=== PATIENT | male | born 1925 | race Caucasian/White ===

== ENCOUNTER 2017-02-05 16:23 | Inpatient (IN) | payer OTHER, MEDICARE ==
--- NOTE | 2017-02-05 16:51 | PDOC ---
[id number] is an 89 year old male with a past medical hx of end stage renal disease (dialysis //thu), HTN, hypercholesterolemia, and hypothyroidism who presents to the ED complaining of nasal congestion and a cough for a few days. The patient reports a yellow/white sputum. He reports he received a full course of dialysis today and then he went to see Dr. Longoria for his symptoms. Dr. Longoria states the patient also had a fever and sent him to the ED for further evaluation. The patient notes generalized weakness. The patient denies any headache, dizziness, chest pain, SOB, abdominal pain, nausea, vomiting, diarrhea, rash. PCP is Dr. Longoria. Wool Supplier is Dr. 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/BPH) HTN: Yes Hypercholesterolemia: Yes Liver Disease: No Seizures: No Thyroid Disease: Yes - Surgical History Abdominal Surgery: Yes Appendectomy: No Cardiac Surgery: No Cholecystectomy: Yes Lung Surgery: No Neurologic Surgery: No Orthopedic Surgery: No - Immunization History Immunization Up to Date: Yes - Psycho/Social/Smoking Cessation Hx Anxiety: No Suicidal Ideation: No Smoking Status: No Smoking History: Former smoker Have you smoked in the past 12 months: No Number of Cigarettes Smoked Daily: 0 If you are a former smoker, when did you quit?: 1965 Cigars Per Day: 0 Information on smoking cessation initiated: No Hx Alcohol Use: No Drug/Substance Use Hx: No Substance Use Type: None Hx Substance Use Treatment: No <Willy Coker - Last Filed: 02/10/17 02:45> - Past Medical History Allergies/Adverse Reactions: Allergies Allergy/AdvReac Type Severity Reaction Status Date / Time No Known Drug Allergies Allergy Verified 02/05/17 16:39 Home Medications: Ambulatory Orders Levothyroxine [Synthroid -] 75 mcg PO DAILY@0700 tablet 09/18/15 Sevelamer Carbonate [Renvela -] 800 mg PO BIDWM tab 09/18/15 Labetalol HCl [Normodyne -] 50 mg PO DAILY 09/08/16 Review of Systems - Review of Systems Able to Perform ROS?: Yes Comments:: 02/05/17 19:15 CONSTITUTIONAL: +Fever, generalized weakness. No reported: Chills, Diaphoresis, Malaise, Loss of Appetite HEENT: +Nasal congestion. No reported: Rhinorrhea, Throat Pain, Throat Swelling, Difficulty Swallowing, Mouth Swelling, Ear Pain, Eye Pain, Visual Changes CARDIOVASCULAR: No reported: Chest Pain, Syncope, Palpitations, Irregular Heart Rate, Lightheadedness, Peripheral Edema RESPIRATORY: +Cough. No reported: Shortness of Breath, SOB with Exertion, Orthopnea, Wheezing , Stridor, Hemoptysis GASTROINTESTINAL: No reported: Abdominal pain, Abdominal Distension, Nausea, Vomiting, Diarrhea, Constipation, Melena, Hematochezia GENITOURINARY: No reported: Dysuria, Frequency, Urgency, Hesitancy, Flank Pain, Genital Pain MUSCULOSKELETAL: No reported: Myalgia, Arthralgia, Joint Swelling, Back pain, Neck Pain SKIN: No reported: Rash, Itching, Pallor HEMEATOLOGIC/IMMUNOLOGIC: No reported: Easy Bleeding, Easy Bruising, Lymphadenopathy, Frequent infections ENDOCRINE: No reported: Unexplained Weight Gain, Unexplained Weight Loss, Heat Intolerance , Cold Intolerance NEUROLOGIC: No reported: Headache, Focal Weakness, Paresthesias, Vertigo, Lightheadedness, Unsteady Gait, Seizure, Mental Status Changes, Incontinence PSYCHIATRIC: No reported: Anxiety, Depression <Ai Mcneil - Last Filed: 02/05/17 19:16> *Physical Exam - Vital Signs Last Vital Signs Temp Pulse Resp BP Pulse Ox 102.7 F H 88 20 160/64 96 02/05/17 16:37 02/05/17 16:37 02/05/17 16:37 02/05/17 16:37 02/05/17 16:37 - Physical Exam Comments: 02/05/17 19:16 GENERAL: The patient is awake, alert, and fully oriented, Nontoxic - in no acute distress, thin to touch HEAD: Normocephalic, atraumatic. EYES: extraocular movements intact, sclera anicteric, conjunctiva clear. ENT: Normal voice, Moist mucous membranes. NECK: Normal range of motion, supple LUNGS: Breath sounds equal, clear to auscultation bilaterally. No wheezes, no rhonchi, no rales. HEART: 4/6 systolic murmer ABDOMEN: Soft, nontender, normoactive bowel sounds. No guarding, no rebound. . No CVA tenderness EXTREMITIES: +fistula in LUE with thrill Normal range of motion, no edema. No clubbing or cyanosis. No cords, erythema, or tenderness. NEUROLOGICAL: No facial assymetry, Normal speech, movin gall 4 extremities spotnaneously and symemtrically PSYCH: Normal mood, normal affect. SKIN: hot to touch, Dry, normal turgor, <Ai Mcneil - Last Filed: 02/05/17 19:16> - Vital Signs Last Vital Signs Temp Pulse Resp BP Pulse Ox 102.7 F H 88 20 160/64 96 02/05/17 16:37 02/05/17 16:37 02/05/17 16:37 02/05/17 16:37 02/05/17 16:37 <Willy Coker - Last Filed: 02/10/17 02:45> Heart Score/ECG Review - ECG Impressions Comment:: 02/05/17 17:31 Twelve-lead EKG was performed and reviewed by me. There is normal sinus rhythm with a normal rate. Rate of 93 First degree AV block PACs with apparent conduction No ST changes suggestive of acute ischemia <Willy Coker - Last Filed: 02/10/17 02:45> ED Treatment Course - LABORATORY CBC & Chemistry Diagram: 02/05/17 17:48 02/05/17 17:48 - ADDITIONAL ORDERS Additional order review: Laboratory Results 02/05/17 02/05/17 17:48 17:48 Sodium 137 Potassium 3.5 Chloride 97 L Carbon Dioxide 26 Anion Gap 14 BUN 29 H Creatinine 3.2 H D Creat Clearance w eGFR 18.38 Random Glucose 100 D Lactic Acid 1.227 Calcium 8.6 Total Bilirubin 0.9 D AST 18 D ALT 24 Alkaline Phosphatase 137 H Creatine Kinase 124 Troponin I 0.09 H Total Protein 6.8 D Albumin 3.5 D 02/05/17 17:48 Influenza Types A,B Antigen (OLEG) - Final Nasopharyngeal Swab - Final 02/05/17 17:48 RBC 3.80 L MCV 95.2 MCHC 32.6 RDW 16.2 H D MPV 8.9 Neutrophils % 79.9 D Lymphocytes % 8.8 D Monocytes % 10.8 H Eosinophils % 0.1 D Basophils % 0.4 - Medications Given in the ED: ED Medications Discontinued Medications Generic Name Dose Route Start Last Admin Trade Name Freq PRN Reason Stop Dose Admin Acetaminophen 975 mg 02/05/17 17:28 02/05/17 17:38 Tylenol - PO 02/05/17 17:29 975 mg ONCE ONE Administration <Ai Mcneil - Last Filed: 02/05/17 19:16> - LABORATORY CBC & Chemistry Diagram: 02/08/17 08:50 02/09/17 07:05 <Willy Coker - Last Filed: 02/10/17 02:45> Medical Decision Making - Medical Decision Making 02/05/17 17:29 89y M hx of HTN, HLD, moderate , ESRD on HD Tue/Namita/Sat, anemia, OA, and hypothyroidism presents with complaint of fever, nasal congestion, mild cough. Pt n oted to be febrile here to 102 and states he isnt feeling well. No associated pain. Exam unremarkable with cler lungs. suspect viral syndrome vs pna will ck labs, cultures, cxr, influenza will give tylenol will reassess A portion of this note was documented by scribe services under my direction. I have reviewed the details of the note, within reason, and agree with the documentation with the following case summary and management plan written by me 02/05/17 18:[address] longoria requests admission to await blood cultures agreed with management and requested cultures and if flu negative, start rocephin cxr negative for pna will admit for further management stable for med/surg Case discussed in detail with admitting physician including history, physical exam and ancillary studies. Admitting physician has assumed care for the patient, will follow all pending diagnostics and will complete the evaluation and treatment. <Willy Coker - Last Filed: 02/10/17 02:45> *DC/Admit/Observation/Transfer - Attestations Scribe Attestion: 02/05/17 19:15 Documentation prepared by Ai Mcneil, acting as medical and health services manager for Willy Coker MD, /DO. <Ai Mcneil - Last Filed: 02/05/17 19:16> - Discharge Dispostion Admit: Yes <Willy Coker - Last Filed: 02/10/17 02:45> Diagnosis at time of Disposition: Fever in adult - Referrals
[2017-02-05] MEDS ORDERED: ACETAMINOPHEN 325 MG TABLET (FP) PO ONE (17:28)
[2017-02-05] MEDS ORDERED: ACETAMINOPHEN 325 MG TABLET (FP) ONE (17:39)
[2017-02-05 18:00] LABS: BASOPHIL 0.4 % (0-2.0); EOSINOPHIL 0.1 % (0-4.5); MCHC 32.6 g/dl (32.0-35.9); MEAN CELL VOLUME 95.2 fl (80-96); MEAN PLT VOLUME 8.9 fl (7.5-11.1); NEUTROPHILS 79.9 % (42.8-82.8); PLATELET COUNT 129 K/MM3 (134-434); RDW 16.2 % (11.9-15.9); WHITE BLOOD COUNT 4.9 K/mm3 (4.0-10.0)
[2017-02-05 18:07] LABS: INR 1.28 (0.82-1.09); PROTHROMBIN TIME (PATIENT) 14.1 SEC (9.98-11.88)
[2017-02-05 18:28] LABS: ALBUMIN 3.5 g/dl (3.4-5.0); BILIRUBIN,TOTAL 0.9 mg/dL (0.2-1.0); CALCIUM 8.6 mg/dL (8.5-10.1); COCKROFT - GAULT 11.84; CREATININE 3.2 mg/dL (0.7-1.3); TOT PROT 6.8 g/dl (6.4-8.2)
[2017-02-05 18:31] LABS: TROPONIN I 0.09 ng/ml (0.00-0.05)
[2017-02-05] MEDS ORDERED: CEFTRIAXONE 1 GM in DEXTROSE 5%-WATER - 50 ML IVPB ONE (18:47)
[2017-02-05] MEDS ORDERED: CEFTRIAXONE 50 ML ONE (18:50)
[2017-02-05 21:01] VITALS: BMI 19.3
[2017-02-05] MEDS ORDERED: ACETAMINOPHEN 325 MG TABLET (FP) PO PRN (21:01)
[2017-02-05] MEDS: HEPARIN NA (PORCINE) 5,000 UNITS/ML 1ML VIAL SQ SCH (21:34)
[2017-02-06] MEDS: LEVOTHYROXINE NA 75 MCG TABLET (FP) PO SCH (06:04)
[2017-02-06 07:50] LABS: BASOPHIL 0.7 % (0-2.0); EOSINOPHIL 0.2 % (0-4.5); MCH 31.6 pg (25.7-33.7); MCHC 32.9 g/dl (32.0-35.9); MEAN CELL VOLUME 95.8 fl (80-96); MEAN PLT VOLUME 8.6 fl (7.5-11.1); PLATELET COUNT 104 K/MM3 (134-434); RDW 16.4 % (11.9-15.9); WHITE BLOOD COUNT 4.2 K/mm3 (4.0-10.0)
[2017-02-06 07:51] LABS: ALBUMIN 3.1 g/dl (3.4-5.0); BILIRUBIN,TOTAL 0.6 mg/dL (0.2-1.0); CALCIUM 7.9 mg/dL (8.5-10.1); COCKROFT - GAULT 8.1; CREATININE 4.4 mg/dL (0.7-1.3)
[2017-02-06] MEDS: SEVELAMER CARBONATE 800 MG TAB (FP) PO SCH ×2 (07:52→17:36)
[2017-02-06 07:54] LABS: TROPONIN I 0.22 ng/ml (0.00-0.05)
--- NOTE | 2017-02-06 09:06 | HP ---
Admitting History and Physical - Admission History of Present Illness: 89 year old male with a past medical hx of end stage renal disease (dialysis //thu), HTN, hypercholesterolemia, and hypothyroidism who presents to the ED complaining of nasal congestion and a cough for a few days. The patient reports a yellow/white sputum. He reports he received a full course of dialysis today and then he was seen in the office the patient also had a fever and I sent him to the ED for further evaluation. The patient notes generalized weakness. - Past Medical History Cardiovascular: Yes: Aortic Stenosis, HTN, Hyperlipdemia, Murmur, Other (aotic stenosis--moderate) Gastrointestinal: Yes: Peptic Ulcer Disease (40 years ago) Hepatobiliary: Yes: Cholecystitis (s/p drain placement) Renal/: Yes: Renal Failure, BPH, Hemodialysis Heme/Onc: Yes: Anemia Musculoskeletal: Yes: Osteoarthritis Endocrine: Yes: Hypothyroidism - Past Surgical History Past Surgical History: Yes: AV Fistula/Graft, Cholecystectomy - Smoking History Smoking history: Former smoker Have you smoked in the past 12 months: No Aproximately how many cigarettes per day: 0 If you are a former smoker, when did you quit?: 1965 - Alcohol/Substance Use Hx Alcohol Use: No Home Medications - Allergies Allergies/Adverse Reactions: Allergies Allergy/AdvReac Type Severity Reaction Status Date / Time No Known Drug Allergies Allergy Verified 02/05/17 16:39 - Home Medications Home Medications: Ambulatory Orders Levothyroxine [Synthroid -] 75 mcg PO DAILY@0700 tablet 09/18/15 Sevelamer Carbonate [Renvela -] 800 mg PO BIDWM tab 09/18/15 Labetalol HCl [Normodyne -] 50 mg PO DAILY 09/08/16 Review of Systems - Review of Systems Constitutional: reports: Fever, Weakness Cardiovascular: denies: Chest Pain Respiratory: reports: Cough Gastrointestinal: denies: Abdominal Pain Genitourinary: reports: No Symptoms Neurological: reports: Incoordination, Unsteady Gait, Weakness Physical Examination Vital Signs: Vital Signs Temperature 98.1 F 02/06/17 08:33 Pulse Rate 70 02/06/17 08:33 Respiratory Rate 20 02/06/17 08:33 Blood Pressure 125/64 02/06/17 08:33 O2 Sat by Pulse Oximetry (%) 95 02/05/17 20:54 Cardiovascular: Yes: Murmur, S1, S2 Respiratory: Yes: Rales (roland) Gastrointestinal: Yes: Normal Bowel Sounds, Soft Edema: No Neurological: Yes: Alert, Oriented, Unsteady Gait, Weakness Labs: CBC, BMP 02/06/17 06:20 02/06/17 06:20 Problem List - Problems (1) Pneumonia Assessment/Plan: IV ABX CT OF CHEST O2 ID AND PULM CONSULT Code(s): J18.9 - PNEUMONIA, UNSPECIFIED ORGANISM (2) Elevated troponin I level Assessment/Plan: MONITOR LABS--MAYBE DUE TO RENAL FAILURE CARDIO Code(s): R74.8 - ABNORMAL LEVELS OF OTHER SERUM ENZYMES (3) Aortic stenosis Assessment/Plan: PER CARDIO Code(s): I35.0 - NONRHEUMATIC AORTIC (VALVE) STENOSIS Qualifiers: Cardiac valve disease etiology: nonrheumatic Qualified Code(s): I35.0 - Nonrheumatic aortic (valve) stenosis (4) ESRD (end stage renal disease) Assessment/Plan: RENAL CONSULT Code(s): N18.6 - END STAGE RENAL DISEASE (5) Weakness Assessment/Plan: TREAT PNEUMONIA PT Code(s): R53.1 - WEAKNESS
[2017-02-06] MEDS: CEFTRIAXONE 50 ML IVPB SCH (10:04)
[2017-02-06] MEDS: LABETALOL HCL 100 MG TABLET (FP) PO SCH (10:05)
[2017-02-06] MEDS: HEPARIN NA (PORCINE) 5,000 UNITS/ML 1ML VIAL SQ SCH ×2 (10:05→22:03)
--- NOTE | 2017-02-06 10:13 | CONSULT ---
Consultation: REQUESTING PROVIDER: CONSULT REQUEST: We have been asked to medically evaluate this patient for ( specify). HISTORY OF PRESENT ILLNESS: This is an 89-year-old male with a history of HTN, HLD, moderate , ESRD on HD Thu/Thu/Thu, anemia, OA, and hypothyroidism who presents to the hospital complaining of cough for 1.5 weeks and congested nose for a day. He went to his PCP office and was referred to the ED. The pt was found to have T 102 F. The pt didn't have fever before coming to the hospital. He denies SOB, sore throat, chest pain, abdominal pain, N/V, diarrhea, constipation. He denies dysuria, sick contacts, recent travel. He was recntly hospitalized in [facility] 19 Sep 2016) for GI bleeding. REVIEW OF SYSTEMS: CONSTITUTIONAL: fever, Absent: chills, diaphoresis, generalized weakness, malaise, loss of appetite, weight change HEENT: Absent: rhinorrhea, nasal congestion, throat pain, throat swelling, difficulty swallowing, mouth swelling, ear pain, eye pain, visual changes CARDIOVASCULAR: Absent: chest pain, syncope, palpitations, irregular heart rate, lightheadedness , peripheral edema RESPIRATORY: cough, Absent: shortness of breath, dyspnea with exertion, orthopnea, wheezing, stridor , hemoptysis GASTROINTESTINAL: Absent: abdominal pain, abdominal distension, nausea, vomiting, diarrhea, constipation, melena, hematochezia GENITOURINARY: Absent: dysuria, frequency, urgency, hesitancy, hematuria, flank pain, genital pain MUSCULOSKELETAL: Absent: myalgia, arthralgia, joint swelling, back pain, neck pain SKIN: Absent: rash, itching, pallor ENDOCRINE: Absent: unexplained weight gain, unexplained weight loss NEUROLOGIC: Absent: headache, focal weakness or paresthesias, dizziness, unsteady gait, seizure, mental status changes, bladder or bowel incontinence PSYCHIATRIC: Absent: anxiety, depression PHYSICAL EXAMINATION Vital Signs - 24 hr 02/05/17 02/05/17 02/06/17 20:06 20:54 01:00 Temperature 97.9 F 98.8 F 98.4 F Pulse Rate 20 L Pulse Rate [ 70 Apical] Respiratory 18 Rate Blood Pressure 128/66 Blood Pressure 111/57 [Left Arm] O2 Sat by Pulse 96 95 Oximetry (%) 02/06/17 02/06/17 02/06/17 06:00 06:30 08:33 Temperature 100.6 F H 98.8 F 98.1 F Pulse Rate 80 70 Pulse Rate [ Apical] Respiratory 24 20 Rate Blood Pressure 147/81 125/64 Blood Pressure [Left Arm] O2 Sat by Pulse Oximetry (%) GENERAL: Awake, alert, and fully oriented, in no acute distress, cachectic. HEAD: Normal with no signs of trauma. EYES: Pupils equal, round and reactive to light, extraocular movements intact, sclera anicteric, conjunctiva clear. EARS, NOSE, THROAT: Ears normal, nares patent, oropharynx clear without exudates. Moist mucous membranes. NECK: Normal range of motion, supple without lymphadenopathy, JVD, or masses. LUNGS: Breath sounds equal, crackles on left side at base. No wheezes. No accessory muscle use. HEART: Regular rate and rhythm, normal S1 and S2, 4/6 systolic murmur over right and left sternal border radiating to apex and axilla, no rub or gallop. ABDOMEN: Soft, nontender, not distended, normoactive bowel sounds, no guarding, no rebound, no masses. No hepatomegaly or splenomegaly. MUSCULOSKELETAL: Normal range of motion at all joints. No bony deformities or tenderness. No CVA tenderness. UPPER EXTREMITIES: 2+ pulses, warm, well-perfused. No cyanosis. No clubbing. Cap refill <2 seconds. No peripheral edema, fistula in LUE. LOWER EXTREMITIES: 2+ pulses, warm, well-perfused. No calf tenderness. 1 + peripheral edema. NEUROLOGICAL: No facial asymmetry. Normal speech. Normal gait. PSYCHIATRIC: Cooperative. Good eye contact. Appropriate mood and affect. SKIN: Warm, dry, normal turgor, no rashes, small scar s/p cholecystectomy in right upper abdomen. Laboratory Results - last 24 hr 02/05/17 02/06/17 02/06/17 21:00 06:20 06:20 WBC 4.2 RBC 3.56 L Hgb 11.2 L Hct 34.1 L MCV 95.8 MCHC 32.9 RDW 16.4 H Plt Count 104 L MPV 8.6 Neutrophils % 68.0 Lymphocytes % 18.6 D Monocytes % 12.5 H Eosinophils % 0.2 D Basophils % 0.7 Sodium 137 Potassium 3.6 Chloride 98 Carbon Dioxide 26 Anion Gap 13 BUN 41 H D Creatinine 4.4 H D Creat Clearance w eGFR 12.73 Random Glucose 81 Lactic Acid 1.705 Calcium 7.9 L Total Bilirubin 0.6 D AST 21 ALT 19 D Alkaline Phosphatase 123 H Troponin I 0.22 H D Total Protein 6.0 L Albumin 3.1 L Active Medications Generic Name Dose Route Start Last Admin Trade Name Freq PRN Reason Stop Dose Admin Acetaminophen 650 mg 02/05/17 21:01 02/06/17 05:51 Tylenol - PO 650 mg Q4H PRN Administration FEVER OR PAIN Albuterol Sulfate 1 amp 02/06/17 00:00 Ventolin 0.083% Nebulizer Soln - NEB Q6HPO RENATO Heparin Sodium (Porcine) 5,000 unit 02/05/17 22:00 02/05/17 21:34 Heparin - SQ 5,000 unit BID RENATO Administration Ceftriaxone Sodium 50 mls @ 100 mls/hr 02/06/17 10:00 Rocephin 1gm Ivpb (Pre-Docked) IVPB DAILY RENATO Labetalol HCl 50 mg 02/06/17 10:00 Normodyne - PO DAILY RENATO Levothyroxine Sodium 75 mcg 02/06/17 07:00 02/06/17 06:04 Synthroid - PO 75 mcg DAILY@0700 RENATO Administration Sevelamer Carbonate 800 mg 02/06/17 08:00 02/06/17 07:52 Renvela - PO 800 mg BIDWM RENATO Administration ASSESSMENT/PLAN: This is an 89-year-old male with a history of HTN, HLD, moderate , ESRD on HD Thu/Thu/Thu, anemia, OA, and hypothyroidism who presents to the hospital complaining of cough for 1.5 weeks and congested nose for a day. possible pneumonia: -cxr reviewed, continue Ceftriaxone 1 g qf -Influenza negative -will obtain CT chest -legionella urine ordered HTN: -continue Labetalol 50 mg qd ESRD: -continue dialysis, next one tomorrow -nephrology consulted Hypothyroidism: -continue Synthroid 75 mcg qd Anemia: -stable Hgb -monitor Dispo: We will continue to follow the patient. Thank you for this consultative opportunity. Problem List - Problems (1) Fever in adult Code(s): R50.9 - FEVER, UNSPECIFIED (2) Anemia Code(s): D64.9 - ANEMIA, UNSPECIFIED Qualifiers: Anemia type: other cause Other causes of anemia: chronic disease, kidney Qualified Code(s): N18.9 - Chronic kidney disease, unspecified; D63.1 - Anemia in chronic kidney disease (3) Aortic stenosis Code(s): I35.0 - NONRHEUMATIC AORTIC (VALVE) STENOSIS Qualifiers: Cardiac valve disease etiology: nonrheumatic Qualified Code(s): I35.0 - Nonrheumatic aortic (valve) stenosis (4) ESRD (end stage renal disease) on dialysis Code(s): N18.6 - END STAGE RENAL DISEASE Z99.2 - DEPENDENCE ON RENAL DIALYSIS (5) HTN (hypertension) Code(s): I10 - ESSENTIAL (PRIMARY) HYPERTENSION Qualifiers: Hypertension type: essential hypertension Qualified Code(s): I10 - Essential (primary) hypertension (6) Hypothyroid Code(s): E03.9 - HYPOTHYROIDISM, UNSPECIFIED Visit type - Emergency Visit Emergency Visit: Yes ED Registration Date: 02/05/17 Care time: The patient presented to the Emergency Department on the above date and was hospitalized for further evaluation of their emergent condition. - New Patient This patient is new to me today: Yes Date on this admission: 02/06/17 - Critical Care Critical Care patient: No
--- NOTE | 2017-02-06 11:08 | PN ---
Teaching Attending Note Name of Resident: Jacquie Chiang ATTENDING PHYSICIAN STATEMENT I saw and evaluated the patient. I reviewed the resident's note and discussed the case with the resident. I agree with the resident's findings and plan as documented. SUBJECTIVE: cough for one week no hemoptysis was not aware he had fever no chills or rigors fever to 102.7 in ED now afebrile OBJECTIVE: Vital Signs Period Temp Pulse Resp BP Sys/Lucero Pulse Ox Last 24 Hr 97.9 F-102.7 F 20-88 18-24 111-160/57-81 95-96 edentulous no conjunctival hemorrhages cor-rrr 4/6 annelise lungs crackles left base abd soft,nt ext bilateral pedal edema CBC, BMP 02/06/17 06:20 02/06/17 06:20 Microbiology 02/05/17 17:48 Nasopharyngeal Swab Influenza Types A,B Antigen (OLEG) - Final 02/05/17 17:48 Nasopharyngeal Swab - Final blood cultures pending inflluenza negative ASSESSMENT AND PLAN: fever cough esrd/hd via avf ?pneumonia, ?viral syndrome would get chest ct sputum culture legionella antigen clinically improved fevers trending down would f/u cultures Problem List - Problems (1) Fever in adult Code(s): R50.9 - FEVER, UNSPECIFIED (2) ESRD (end stage renal disease) on dialysis Code(s): N18.6 - END STAGE RENAL DISEASE Z99.2 - DEPENDENCE ON RENAL DIALYSIS (3) Aortic stenosis Code(s): I35.0 - NONRHEUMATIC AORTIC (VALVE) STENOSIS
[2017-02-06] MEDS: ALBUTEROL SO4 0.083% IH SOL 2.5 MG/3 ML VIAL.NEB. NEB SCH ×2 (11:10→17:05)
--- NOTE | 2017-02-06 11:15 | EKG ---
Test Reason : Blood Pressure : / mmHG Vent. Rate : 066 BPM Atrial Rate : 066 BPM P-R Int : 252 ms QRS Dur : 106 ms QT Int : 478 ms P-R-T Axes : 061 041 032 degrees QTc Int : 501 ms SINUS RHYTHM WITH 1ST DEGREE A-V BLOCK WITH PREMATURE ATRIAL COMPLEXES POSSIBLE LATERAL INFARCT (CITED ON OR BEFORE 23-APR-2015) PROLONGED QT ABNORMAL ECG WHEN COMPARED WITH ECG OF 05-FEB-2017 17:06, NO SIGNIFICANT CHANGE WAS FOUND Confirmed by JOHN BURK MD ([id number]) on 02/06/2017 11:14:32 AM Referred By: BERNARD MOREJON Confirmed By:JOHN BURK MD
--- NOTE | 2017-02-06 11:31 | EKG ---
Test Reason : Blood Pressure : / mmHG Vent. Rate : 093 BPM Atrial Rate : 093 BPM P-R Int : 244 ms QRS Dur : 102 ms QT Int : 378 ms P-R-T Axes : 063 020 060 degrees QTc Int : 469 ms SINUS RHYTHM WITH 1ST DEGREE A-V BLOCK WITH PREMATURE ATRIAL COMPLEXES WITH ABERRANT CONDUCTION POSSIBLE LEFT ATRIAL ENLARGEMENT POSSIBLE ANTEROLATERAL INFARCT (CITED ON OR BEFORE 23-APR-2015) ABNORMAL ECG Confirmed by JOHN BURK MD ([id number]) on 02/06/2017 11:31:17 AM Referred By: Confirmed By:JOHN BURK MD
--- NOTE | 2017-02-06 13:21 | CON.CARD ---
Consult Consult Specialty:: Cardiology Referred by:: Dr. White Reason for Consultation:: Elevated TP - History of Present Illness Chief Complaint: Cough and congestion History of Present Illness: 89 M with HTN and ESRD for several years. Has mild CAD on stress in 2015 with normal EF. was noted on echocardiogram in 2014. He was seen yesterday in the office for cough malaise and congestion. Productive white phlegm and noted to be febrile. Lat HD session was yesterday without incident. Currently feels well. TP was noted to be mildly elevated. He denies chest pain. Typically poorly ambulatory and uses a walker. No dizziness, chest pain. Stress 2014 Small inferolateral reversible defect - History Source History Provided By: Patient Limitations to Obtaining History: No Limitations - Past Medical History Cardio/Vascular: Yes: Aortic Stenosis, HTN, Hyperlipdemia, Murmur, Other (aotic stenosis--moderate) Gastrointestinal: Yes: Peptic Ulcer Disease (40 years ago) Hepatobiliary: Yes: Cholecystitis (s/p drain placement) Renal/: Yes: Renal Failure, BPH, Hemodialysis Musculoskeletal: Yes: Osteoarthritis Endocrine: Yes: Hypothyroidism - Past Surgical History Past Surgical History: Yes: AV Fistula/Graft, Cholecystectomy - Alcohol/Substance Use Hx Alcohol Use: No History of Substance Use: reports: None - Smoking History Smoking history: Former smoker Have you smoked in the past 12 months: No Aproximately how many cigarettes per day: 0 If you are a former smoker, when did you quit?: 1965 Home Medications - Allergies Allergies/Adverse Reactions: Allergies Allergy/AdvReac Type Severity Reaction Status Date / Time No Known Drug Allergies Allergy Verified 02/05/17 16:39 - Home Medications Home Medications: Ambulatory Orders Levothyroxine [Synthroid -] 75 mcg PO DAILY@0700 tablet 09/18/15 Sevelamer Carbonate [Renvela -] 800 mg PO BIDWM tab 09/18/15 Labetalol HCl [Normodyne -] 50 mg PO DAILY 09/08/16 Review of Systems - Review of Systems Constitutional: reports: Lethargy, Weakness Eyes: reports: No Symptoms HENT: reports: Nasal Congestion Neck: reports: No Symptoms Cardiovascular: reports: Shortness of Breath Respiratory: reports: Cough, Exercise Intolerance, SOB on Exertion Gastrointestinal: reports: No Symptoms Genitourinary: reports: No Symptoms - Risk Factors Known Risk Factors: Yes: Age, Hypertension, Physical Inactivity Vital Signs: Vital Signs Temperature 98.1 F 02/06/17 08:33 Pulse Rate 70 02/06/17 08:33 Respiratory Rate 20 02/06/17 08:33 Blood Pressure 125/64 02/06/17 08:33 O2 Sat by Pulse Oximetry (%) 95 02/05/17 20:54 Constitutional: Yes: Well Nourished, Thin Eyes: Yes: WNL HENT: Yes: WNL Neck: Yes: WNL Respiratory: Yes: CTA Bilaterally Gastrointestinal: Yes: WNL Cardiovascular: Yes: Regular Rate and Rhythm, Other (3/6 late peaking CDM [place] and LUSB) JVD: No Carotid Bruit: No PMI: Non-Displaced Heart Sounds: Yes: S1, S2 Murmur: Yes: Systolic Murmur, Grade 3 Edema: No - Other Data Labs, Other Data: CBC, BMP 02/06/17 06:20 02/06/17 06:20 INR, PTT INR 1.28 (0.82-1.09) H 02/05/17 17:20 Troponin, BNP 02/06/17 06:20 Troponin I 0.22 H D Troponin, BNP 02/06/17 06:20 Troponin I 0.22 H D Echo: Pending Ejection Fraction %: LVEF > or = 40 % Imaging - Results X-ray: Report Reviewed (Increased interstitial markings) Cat Scan: Pending EKG: Image Reviewed (NSR APC with) Problem List - Problems (1) CHF (congestive heart failure) Assessment/Plan: CXR suggesting possibly heart failure. Currently stable, sating well and in no ditress. HD to remove fluid as scheduled by renal. Follow CT chest results. Code(s): I50.9 - HEART FAILURE, UNSPECIFIED Qualifiers: Congestive heart failure type: diastolic Congestive heart failure chronicity: acute Qualified Code(s): I50.31 - Acute diastolic (congestive ) heart failure (2) Aortic stenosis Assessment/Plan: Clinically may have developed more significant . Will order echocardiogram Code(s): I35.0 - NONRHEUMATIC AORTIC (VALVE) STENOSIS Qualifiers: Cardiac valve disease etiology: nonrheumatic Qualified Code(s): I35.0 - Nonrheumatic aortic (valve) stenosis (3) Elevated troponin I level Assessment/Plan: In the setting of CKD likely related to renal disease, although was normal before. Will repeat TP and CPK now. Possibly in the setting of volume overload and/or infection. Conservative medical management as outlined above for now. Code(s): R74.8 - ABNORMAL LEVELS OF OTHER SERUM ENZYMES
[2017-02-06 14:23] LABS: TROPONIN I 0.19 ng/ml (0.00-0.05)
--- NOTE | 2017-02-06 15:06 | CONSULT ---
Consult - text type - Consultation Consultation Note: Renal Consult for ESRD on HD This is a 89 year old Gentleman with PMhx of ESRD on HD x 5 years, Hypertension , Chronic Cholecystitis s/p cholecystectomy, BPH who presented with 1 week history of productive cough and found to have Fever with suspected PNA. Pt completed his full dialysis treatment yesterday. Today reports that his cough is improved. + Fever on presentation. Denies any recent sick contacts. No Chest pain, abd pain, N/V/D. No rash. No recent Abx use. PMhx: as above Allergies: NDKA Family hx: [place] Social Hx: No T/A/D ROS: As per HPI Home Meds: Home Medications Medication Instructions Recorded Levothyroxine [Synthroid -] 75 mcg PO DAILY@0700 tablet 09/18/15 Sevelamer Carbonate [Renvela -] 800 mg PO BIDWM tab 09/18/15 Labetalol HCl [Normodyne -] 50 mg PO DAILY 09/08/16 Vital Signs Temperature 98.3 F 02/06/17 13:51 Pulse Rate 50 L 02/06/17 13:51 Respiratory Rate 18 02/06/17 13:51 Blood Pressure 128/58 02/06/17 13:51 O2 Sat by Pulse Oximetry (%) 95 02/05/17 20:54 Intake & Output 02/03/17 02/04/17 02/05/17 02/06/17 23:59 23:59 23:59 23:59 Intake Total 250 Output Total 50 Balance 200 Weight 116 lb 5 oz 111 lb Gen: NAD, awake and alert HEENT: NC/AT, MMM, NO JVD CVS: RRR + systolic Murmur Lungs: CTA, no rales or wheeze Abd: soft NT/ND Ext: No edema, clubbing or cyanosis Access: Left upper arm AVF CBC, BMP 02/06/17 06:20 02/06/17 06:20 Laboratory Tests 02/05/17 02/06/17 02/06/17 17:48 06:20 06:20 MCV 95.8 Calcium 7.9 L Creatine Kinase Troponin I 0.09 H 0.22 H D Albumin 3.1 L 02/06/17 13:35 MCV Calcium Creatine Kinase 154 D Troponin I 0.19 H Albumin Current Medications Acetaminophen (Tylenol -) 650 mg PO Q4H PRN PRN Reason: FEVER OR PAIN Last Admin: 02/06/17 05:51 Dose: 650 mg Albuterol Sulfate (Ventolin 0.083% Nebulizer Soln -) 1 amp NEB Q6HPO [facility] Last Admin: 02/06/17 11:10 Dose: 1 amp Heparin Sodium (Porcine) (Heparin -) 5,000 unit SQ BID [facility] Last Admin: 02/06/17 10:05 Dose: 5,000 unit Ceftriaxone Sodium (Rocephin 1gm Ivpb (Pre-Docked)) 50 mls @ 100 mls/hr IVPB DAILY [facility] Last Admin: 02/06/17 10:04 Dose: 100 mls/hr Labetalol HCl (Normodyne -) 50 mg PO DAILY [facility] Last Admin: 02/06/17 10:05 Dose: 50 mg Levothyroxine Sodium (Synthroid -) 75 mcg PO DAILY@0700 [facility] Last Admin: 02/06/17 06:04 Dose: 75 mcg Sevelamer Carbonate (Renvela -) 800 mg PO BIDWM [facility] Last Admin: 02/06/17 07:52 Dose: 800 mg A/P 89 year old Gentleman with PMhx of ESRD on HD x 5 years, Hypertension, Chronic Cholecystitis s/p cholecystectomy, BPH who presented with 1 week history of productive cough and found to have Fever with suspected PNA. #Cough/Fever r/o PNA Clinically improved on Ceftriaxone as per ID Further imaging (CT) as needed supportive Care #ESRD on HD s/p complete dialysis yesterday for next dialysis tomorrow as inpatient no heparin with HD given low plt count #Thrombocytopenia low since September ? etiology no heparin with HD at this time #Renal Osteodystrphy continue Sevelamer Trend phos levels #Hypertension BP is at goal continue Labetalol hold before dialysis Thank you will follow Ray Foster DO
[2017-02-07] MEDS: LEVOTHYROXINE NA 75 MCG TABLET (FP) PO SCH (06:29)
[2017-02-07] MEDS: ALBUTEROL SO4 0.083% IH SOL 2.5 MG/3 ML VIAL.NEB. NEB SCH ×4 (06:40→17:52)
[2017-02-07] MEDS: SEVELAMER CARBONATE 800 MG TAB (FP) PO SCH ×2 (09:16→17:09)
--- NOTE | 2017-02-07 10:22 | PN ---
Progress Note, Physician Chief Complaint: cough and sob History of Present Illness: 89 M with HTN and ESRD for several years. Has mild CAD on stress in 2015 with normal EF. was noted on echocardiogram in 2014. He was seen yesterday in the office for cough malaise and congestion. Productive white phlegm and noted to be febrile. Lat HD session was yesterday without incident. Currently feels well. TP was noted to be mildly elevated. He denies chest pain. Typically poorly ambulatory and uses a walker. No dizziness, chest pain. Stress 2014 Small inferolateral reversible defect Echo 02/06/17 mod lvh, normal EF, LAE, mod-sev 35/19 mm grad, mod MR, severe TR, severe PHTN CT chest 02/06/17 c/w SUZETTE pneumonia - Current Medication List Current Medications: Active Medications Acetaminophen (Tylenol -) 650 mg PO Q4H PRN PRN Reason: FEVER OR PAIN Last Admin: 02/06/17 05:51 Dose: 650 mg Albuterol Sulfate (Ventolin 0.083% Nebulizer Soln -) 1 amp NEB Q6HPO [facility] Last Admin: 02/07/17 06:40 Dose: 1 amp Heparin Sodium (Porcine) (Heparin -) 5,000 unit SQ BID [facility] Last Admin: 02/06/17 22:03 Dose: 5,000 unit Ceftriaxone Sodium (Rocephin 1gm Ivpb (Pre-Docked)) 50 mls @ 100 mls/hr IVPB DAILY [facility] Last Admin: 02/06/17 10:04 Dose: 100 mls/hr Labetalol HCl (Normodyne -) 50 mg PO DAILY [facility] Last Admin: 02/06/17 10:05 Dose: 50 mg Levothyroxine Sodium (Synthroid -) 75 mcg PO DAILY@0700 [facility] Last Admin: 02/07/17 06:29 Dose: 75 mcg Sevelamer Carbonate (Renvela -) 800 mg PO BIDWM [facility] Last Admin: 02/07/17 09:16 Dose: 800 mg - Objective Vital Signs: Vital Signs Temperature 98.8 F 02/07/17 05:44 Pulse Rate 81 02/07/17 05:44 Respiratory Rate 20 02/07/17 05:44 Blood Pressure 146/57 02/07/17 05:44 O2 Sat by Pulse Oximetry (%) 98 02/06/17 21:00 Constitutional: Yes: Well Nourished, No Distress Eyes: Yes: WNL HENT: Yes: WNL Neck: Yes: WNL, Supple Cardiovascular: Yes: Regular Rate and Rhythm, Murmur (3/6 annelise rusb, soft hsm LLSB) Respiratory: Yes: Rhonchi (SUZETTE) Gastrointestinal: Yes: WNL Genitourinary: Yes: WNL Musculoskeletal: Yes: WNL Extremities: Yes: WNL Edema: No Peripheral Pulses WNL: Yes Integumentary: Yes: WNL Labs: CBC, BMP 02/06/17 06:20 02/06/17 06:20 INR, PTT INR 1.28 (0.82-1.09) H 02/05/17 17:20 Problem List - Problems (1) Elevated troponin I level Assessment/Plan: Nick pattern is atypical for NSTEMI. Most likely due to renal disease and infection, stress from the setting of volume overload and infection. Conservative medical management as outlined above for now. Will reassess for ischemia workup when treated for pneumonia. May need cath and TAVR. Code(s): R74.8 - ABNORMAL LEVELS OF OTHER SERUM ENZYMES (2) Aortic stenosis Assessment/Plan: Echo shows moderate if not severe . HD for fluid removal, will consider TAVR evaluation when stable and pneumonia is treated. Code(s): I35.0 - NONRHEUMATIC AORTIC (VALVE) STENOSIS Qualifiers: Cardiac valve disease etiology: nonrheumatic Qualified Code(s): I35.0 - Nonrheumatic aortic (valve) stenosis (3) CHF (congestive heart failure) Assessment/Plan: HD for fluid removal. Needs UF. Code(s): I50.9 - HEART FAILURE, UNSPECIFIED Qualifiers: Congestive heart failure type: diastolic Congestive heart failure chronicity: acute on chronic Qualified Code(s): I50.33 - Acute on chronic diastolic (congestive) heart failure
[2017-02-07] MEDS: HEPARIN NA (PORCINE) 5,000 UNITS/ML 1ML VIAL SQ SCH ×2 (10:28→21:58)
--- NOTE | 2017-02-07 11:22 | PN ---
Progress Note (short form) - Note Progress Note: Renal Follow up for ESRD on HD Pt seen and examined at the bedside no acute complaints denies any sob or cough at this time no fever or chills Vital Signs Temperature 98.8 F 02/07/17 10:00 Pulse Rate 70 02/07/17 10:00 Respiratory Rate 18 02/07/17 10:00 Blood Pressure 140/69 02/07/17 10:00 O2 Sat by Pulse Oximetry (%) 98 02/07/17 09:00 Intake & Output 02/04/17 02/05/17 02/06/17 02/07/17 23:59 23:59 23:59 23:59 Intake Total 600 120 Output Total 125 50 Balance 475 70 Weight 116 lb 5 oz 111 lb 113 lb 5 oz Gen: NAD CVS: RRR + systolic Murmur Lungs: CTA, no rales or wheeze Abd: soft NT/ND Ext: No edema, clubbing or cyanosis CBC, BMP 02/06/17 06:20 02/06/17 06:20 Current Medications Acetaminophen (Tylenol -) 650 mg PO Q4H PRN PRN Reason: FEVER OR PAIN Last Admin: 02/06/17 05:51 Dose: 650 mg Albuterol Sulfate (Ventolin 0.083% Nebulizer Soln -) 1 amp NEB Q6HPO [facility] Last Admin: 02/07/17 11:05 Dose: 1 amp Heparin Sodium (Porcine) (Heparin -) 5,000 unit SQ BID [facility] Last Admin: 02/07/17 10:28 Dose: 5,000 unit Ceftriaxone Sodium (Rocephin 1gm Ivpb (Pre-Docked)) 50 mls @ 100 mls/hr IVPB DAILY [facility] Last Admin: 02/06/17 10:04 Dose: 100 mls/hr Labetalol HCl (Normodyne -) 50 mg PO DAILY [facility] Last Admin: 02/06/17 10:05 Dose: 50 mg Levothyroxine Sodium (Synthroid -) 75 mcg PO DAILY@0700 [facility] Last Admin: 02/07/17 06:29 Dose: 75 mcg Sevelamer Carbonate (Renvela -) 800 mg PO BIDWM [facility] Last Admin: 02/07/17 09:16 Dose: 800 mg A/P 89 year old Gentleman with PMhx of ESRD on HD x 5 years, Hypertension, Chronic Cholecystitis s/p cholecystectomy, BPH who presented with 1 week history of productive cough and found to have Fever with suspected PNA. #Cough/Fever r/o PNA CT of the chest confirmed PNA continue Ceftriaxone ID follow up for oil heaterman Abx plan #ESRD on HD For dialysis today with UF as tolerated #Thrombocytopenia low since September ? etiology no heparin with HD at this time #Renal Osteodystrphy continue Sevelamer Trend phos levels - be be done with dialysis today #Hypertension BP is at goal continue Labetalol hold before dialysis Ray Foster DO
[2017-02-07 12:40] LABS: MCH 31.5 pg (25.7-33.7); MCHC 33.1 g/dl (32.0-35.9); MEAN PLT VOLUME 8.7 fl (7.5-11.1); PLATELET COUNT 108 K/MM3 (134-434); WHITE BLOOD COUNT 4.4 K/mm3 (4.0-10.0)
[2017-02-07 12:52] LABS: COCKROFT - GAULT 5.87; CREATININE 6.2 mg/dL (0.7-1.3); PHOSPHOROUS 5.2 mg/dL (2.5-4.9)
[2017-02-07] MEDS: CEFTRIAXONE 50 ML IVPB SCH (15:48)
[2017-02-07] MEDS: LABETALOL HCL 100 MG TABLET (FP) PO SCH (15:49)
[2017-02-07] MEDS ORDERED: ALBUTEROL SO4 2.5/IPRATROPIUM 0.5 INH SOL 3 ML VIAL.NEB. NEB PRN (18:11)
--- NOTE | 2017-02-07 18:11 | PN ---
Progress Note, Physician Chief Complaint: he patient is an 89 year old male with a past medical hx of end stage renal disease (dialysis //thu), HTN, hypercholesterolemia, and hypothyroidism who presents to the ED complaining of nasal congestion and a cough for a few days. The patient reports a yellow/white sputum. He reports he received a full course of dialysis today and then he went to see Dr. White for his symptoms. Dr. White states the patient also had a fever and sent him to the ED for further evaluation. The patient notes generalized weakness. The patient denies any headache, dizziness, chest pain, SOB, abdominal pain, nausea, vomiting, diarrhea, rash. PCP is Dr. White. Tub Puller is Dr. Casas Smoking: Former smoker, quit 1965 THIS IS MY FIRST ENCOUNTER WITH THIS PATIENT, CHART AND EVENTS REVIEWED - Current Medication List Current Medications: Active Medications Acetaminophen (Tylenol -) 650 mg PO Q4H PRN PRN Reason: FEVER OR PAIN Last Admin: 02/06/17 05:51 Dose: 650 mg Albuterol Sulfate (Ventolin 0.083% Nebulizer Soln -) 1 amp NEB Q6HPO [facility] Last Admin: 02/07/17 17:52 Dose: 1 amp Heparin Sodium (Porcine) (Heparin -) 5,000 unit SQ BID [facility] Last Admin: 02/07/17 10:28 Dose: 5,000 unit Ceftriaxone Sodium (Rocephin 1gm Ivpb (Pre-Docked)) 50 mls @ 100 mls/hr IVPB DAILY [facility] Last Admin: 02/07/17 15:48 Dose: 100 mls/hr Potassium Chloride (Potassium Chloride 10 Meq Premix Ivpb -) 100 mls @ 100 mls/ hr IVPB Q60M [facility] Stop: 02/07/17 19:14 Labetalol HCl (Normodyne -) 50 mg PO DAILY [facility] Last Admin: 02/07/17 15:49 Dose: 50 mg Levothyroxine Sodium (Synthroid -) 75 mcg PO DAILY@0700 [facility] Last Admin: 02/07/17 06:29 Dose: 75 mcg Sevelamer Carbonate (Renvela -) 800 mg PO BIDWM [facility] Last Admin: 02/07/17 17:09 Dose: 800 mg - Objective Vital Signs: Vital Signs Temperature 99.1 F 02/07/17 17:33 Pulse Rate 73 02/07/17 17:33 Respiratory Rate 18 02/07/17 17:33 Blood Pressure 148/59 02/07/17 17:33 O2 Sat by Pulse Oximetry (%) 98 02/07/17 09:00 Constitutional: Yes: Mild Distress Eyes: Yes: WNL HENT: Yes: WNL Neck: Yes: WNL Cardiovascular: Yes: WNL, Pulse Irregular Respiratory: Yes: WNL Gastrointestinal: Yes: WNL Genitourinary: Yes: Incontinence Edema: Yes Edema: LLE: Trace, RLE: Trace Peripheral Pulses WNL: Yes Integumentary: Yes: WNL Wound/Incision: Yes: Clean/Dry Neurological: Yes: Pre-Existing Deficit ...Motor Strength: LLE, RLE Psychiatric: Yes: Other Labs: CBC, BMP 02/07/17 12:20 02/07/17 12:20 INR, PTT INR 1.28 (0.82-1.09) H 02/05/17 17:20 Problem List - Problems (1) ESRD (end stage renal disease) Code(s): N18.6 - END STAGE RENAL DISEASE (2) Gallstones Code(s): K80.20 - CALCULUS OF GALLBLADDER W/O CHOLECYSTITIS W/O OBSTRUCTION (3) Weakness Code(s): R53.1 - WEAKNESS (4) Pneumonia Code(s): J18.9 - PNEUMONIA, UNSPECIFIED ORGANISM Assessment/Plan RENAL EVAL IV ABX NEBS PULM EVAL 02 SUPPORT
[2017-02-07] MEDS ORDERED: KCL 10 MEQ IVPB 100 ML IVPB SCH ×2 (18:15→21:45)
[2017-02-08] MEDS: LEVOTHYROXINE NA 75 MCG TABLET (FP) PO SCH (06:33)
[2017-02-08] MEDS: SEVELAMER CARBONATE 800 MG TAB (FP) PO SCH ×2 (08:14→17:10)
[2017-02-08] MEDS: CEFTRIAXONE 50 ML IVPB SCH (09:18)
[2017-02-08] MEDS: HEPARIN NA (PORCINE) 5,000 UNITS/ML 1ML VIAL SQ SCH ×2 (09:18→21:41)
[2017-02-08] MEDS: LABETALOL HCL 100 MG TABLET (FP) PO SCH (09:18)
[2017-02-08 10:03] LABS: MCH 31.2 pg (25.7-33.7); MCHC 32.5 g/dl (32.0-35.9); MEAN CELL VOLUME 96.2 fl (80-96); MEAN PLT VOLUME 8.4 fl (7.5-11.1); PLATELET COUNT 112 K/MM3 (134-434); RDW 15.8 % (11.9-15.9); WHITE BLOOD COUNT 3.8 K/mm3 (4.0-10.0)
[2017-02-08 10:31] LABS: ALBUMIN 3.1 g/dl (3.4-5.0); CALCIUM 8.6 mg/dL (8.5-10.1); COCKROFT - GAULT 8.09; CREATININE 4.5 mg/dL (0.7-1.3)
[2017-02-08 10:35] LABS: BILIRUBIN,TOTAL 0.5 mg/dL (0.2-1.0); TOT PROT 6.4 g/dl (6.4-8.2)
--- NOTE | 2017-02-08 11:04 | PN ---
Progress Note, Physician Chief Complaint: cough and sob History of Present Illness: 89 M with HTN and ESRD for several years. Has mild CAD on stress in 2015 with normal EF. was noted on echocardiogram in 2014. He was seen yesterday in the office for cough malaise and congestion. Productive white phlegm and noted to be febrile. Lat HD session was yesterday without incident. Currently feels well. TP was noted to be mildly elevated. He denies chest pain. Typically poorly ambulatory and uses a walker. No dizziness, chest pain. Stress 2014 Small inferolateral reversible defect Echo 02/06/17 mod lvh, normal EF, LAE, mod-sev 35/19 mm grad, mod MR, severe TR, severe PHTN CT chest 02/06/17 c/w SUZETTE pneumonia - Current Medication List Current Medications: Active Medications Acetaminophen (Tylenol -) 650 mg PO Q4H PRN PRN Reason: FEVER OR PAIN Last Admin: 02/06/17 05:51 Dose: 650 mg Albuterol/Ipratropium (Duoneb -) 1 amp NEB Q6H PRN PRN Reason: SHORTNESS OF BREATH Heparin Sodium (Porcine) (Heparin -) 5,000 unit SQ BID [facility] Last Admin: 02/08/17 09:18 Dose: 5,000 unit Ceftriaxone Sodium (Rocephin 1gm Ivpb (Pre-Docked)) 50 mls @ 100 mls/hr IVPB DAILY [facility] Last Admin: 02/08/17 09:18 Dose: 100 mls/hr Labetalol HCl (Normodyne -) 50 mg PO DAILY [facility] Last Admin: 02/08/17 09:18 Dose: 50 mg Levothyroxine Sodium (Synthroid -) 75 mcg PO DAILY@0700 [facility] Last Admin: 02/08/17 06:33 Dose: 75 mcg Sevelamer Carbonate (Renvela -) 800 mg PO BIDWM [facility] Last Admin: 02/08/17 08:14 Dose: 800 mg - Objective Vital Signs: Vital Signs Temperature 97.4 F L 02/08/17 06:00 Pulse Rate 70 02/08/17 06:00 Respiratory Rate 18 02/08/17 06:00 Blood Pressure 136/57 02/08/17 06:00 O2 Sat by Pulse Oximetry (%) 98 02/07/17 21:00 Constitutional: Yes: Well Nourished, No Distress Eyes: Yes: WNL HENT: Yes: WNL Neck: Yes: WNL Cardiovascular: Yes: Regular Rate and Rhythm, Murmur (3/6 annelise rusb) Gastrointestinal: Yes: Normal Bowel Sounds Extremities: Yes: WNL Edema: No Peripheral Pulses WNL: Yes Labs: CBC, BMP 02/08/17 08:50 02/08/17 08:50 INR, PTT INR 1.28 (0.82-1.09) H 02/05/17 17:20 Problem List - Problems (1) Elevated troponin I level Assessment/Plan: Nick pattern is atypical for NSTEMI. Most likely due to renal disease and infection, stress from the setting of volume overload and infection. Conservative medical management as outlined above for now. Will reassess for ischemia workup when treated for pneumonia. May need cath and TAVR when pneumonia is treated. Code(s): R74.8 - ABNORMAL LEVELS OF OTHER SERUM ENZYMES (2) Aortic stenosis Assessment/Plan: Echo shows moderate if not severe . HD for fluid removal, will consider TAVR evaluation when stable and pneumonia is treated. Code(s): I35.0 - NONRHEUMATIC AORTIC (VALVE) STENOSIS Qualifiers: Cardiac valve disease etiology: nonrheumatic Qualified Code(s): I35.0 - Nonrheumatic aortic (valve) stenosis (3) CHF (congestive heart failure) Assessment/Plan: HD for fluid removal. Needs UF. Code(s): I50.9 - HEART FAILURE, UNSPECIFIED Qualifiers: Congestive heart failure type: diastolic Congestive heart failure chronicity: acute on chronic Qualified Code(s): I50.33 - Acute on chronic diastolic (congestive) heart failure
--- NOTE | 2017-02-08 12:11 | CON.PULM ---
Consult Consult Specialty:: PULM/CCM Referred by:: KENZIE Reason for Consultation:: SOB / PNA - History of Present Illness Chief Complaint: SOB / PNA History of Present Illness: 89 M, HTN, HLD, moderate , ESRD on HD (Thu/Thu/Thu), anemia, OA, and hypothyroidism. Admitted via the ER due to cough for about 9 to 10 days. Reports some PND as well. No travel history or sick contacts. No hemoptysis, night sweats, or unintentional weight loss. On arrival to the ER temperature was 102. CT chest : SUZETTE scattered infiltrates consistent with CAP. - History Source History Provided By: Patient Limitations to Obtaining History: No Limitations - Past Medical History Cardio/Vascular: Yes: Aortic Stenosis, HTN, Hyperlipdemia, Murmur, Other (aotic stenosis--moderate) Gastrointestinal: Yes: Peptic Ulcer Disease (40 years ago) Hepatobiliary: Yes: Cholecystitis (s/p drain placement) Renal/: Yes: Renal Failure, BPH, Hemodialysis Musculoskeletal: Yes: Osteoarthritis Endocrine: Yes: Hypothyroidism - Past Surgical History Past Surgical History: Yes: AV Fistula/Graft, Cholecystectomy - Alcohol/Substance Use Hx Alcohol Use: No History of Substance Use: reports: None - Smoking History Smoking history: Former smoker Have you smoked in the past 12 months: No Aproximately how many cigarettes per day: 0 If you are a former smoker, when did you quit?: 1965 Home Medications - Allergies Allergies/Adverse Reactions: Allergies Allergy/AdvReac Type Severity Reaction Status Date / Time No Known Drug Allergies Allergy Verified 02/05/17 16:39 - Home Medications Home Medications: Ambulatory Orders Levothyroxine [Synthroid -] 75 mcg PO DAILY@0700 tablet 09/18/15 Sevelamer Carbonate [Renvela -] 800 mg PO BIDWM tab 09/18/15 Labetalol HCl [Normodyne -] 50 mg PO DAILY 09/08/16 Review of Systems - Review of Systems Constitutional: reports: Fever, Malaise, Weakness. denies: Chills, Night Sweats , Unintentional Wgt. Loss Eyes: reports: No Symptoms HENT: reports: No Symptoms Neck: reports: No Symptoms Cardiovascular: reports: Shortness of Breath. denies: Chest Pain, Edema, Palpitations Respiratory: reports: Cough, SOB, SOB on Exertion. denies: Hemoptysis, Snoring , Wheezing Gastrointestinal: reports: No Symptoms, Rectal Bleeding Breasts: reports: No Symptoms Reported Musculoskeletal: reports: No Symptoms Integumentary: reports: No Symptoms Neurological: reports: No Symptoms Endocrine: reports: No Symptoms Hematology/Lymphatic: reports: No Symptoms Psychiatric: reports: No Symptoms Physical Exam Vital Sings: Vital Signs Temperature 97.4 F L 02/08/17 06:00 Pulse Rate 70 02/08/17 06:00 Respiratory Rate 18 02/08/17 06:00 Blood Pressure 136/57 02/08/17 06:00 O2 Sat by Pulse Oximetry (%) 98 02/07/17 21:00 Constitutional: Yes: No Distress, Thin Eyes: Yes: Conjunctiva Clear, EOM Intact. No: Sclera Icterus HENT: Yes: Atraumatic, Normocephalic Neck: Yes: Supple, Trachea Midline Cardiovascular: Yes: Regular Rate and Rhythm Respiratory: Yes: Cough, Diminished, Rhonchi. No: Accessory Muscle Use, Rales, Stridor, Tachypnea, Wheezes ...Inspection: Yes: WNL ...Clubbing: No Gastrointestinal: Yes: Normal Bowel Sounds, Soft Musculoskeletal: Yes: WNL Extremities: Yes: WNL Edema: No Peripheral Pulses WNL: Yes Integumentary: Yes: WNL Neurological: Yes: Alert, Oriented ...Motor Strength: WNL Psychiatric: Yes: WNL, Alert, Oriented Labs: CBC, BMP 02/08/17 08:50 02/08/17 08:50 Imaging - Results Chest X-ray: Report Reviewed, Image Reviewed Cat Scan: Report Reviewed, Image Reviewed Problem List - Problems (1) Elevated troponin I level Code(s): R74.8 - ABNORMAL LEVELS OF OTHER SERUM ENZYMES (2) Fever in adult Code(s): R50.9 - FEVER, UNSPECIFIED (3) Pneumonia Code(s): J18.9 - PNEUMONIA, UNSPECIFIED ORGANISM (4) Anemia Code(s): D64.9 - ANEMIA, UNSPECIFIED Qualifiers: Anemia type: other cause Other causes of anemia: chronic disease, kidney Qualified Code(s): N18.9 - Chronic kidney disease, unspecified; D63.1 - Anemia in chronic kidney disease (5) Aortic stenosis Code(s): I35.0 - NONRHEUMATIC AORTIC (VALVE) STENOSIS Qualifiers: Cardiac valve disease etiology: nonrheumatic Qualified Code(s): I35.0 - Nonrheumatic aortic (valve) stenosis (6) BPH (benign prostatic hypertrophy) with urinary retention Code(s): N40.1 - BENIGN PROSTATIC HYPERPLASIA WITH LOWER URINARY TRACT SYMP R33.8 - OTHER RETENTION OF URINE (7) ESRD (end stage renal disease) on dialysis Code(s): N18.6 - END STAGE RENAL DISEASE Z99.2 - DEPENDENCE ON RENAL DIALYSIS (8) HTN (hypertension) Code(s): I10 - ESSENTIAL (PRIMARY) HYPERTENSION Qualifiers: Hypertension type: essential hypertension Qualified Code(s): I10 - Essential (primary) hypertension (9) Hypothyroid Code(s): E03.9 - HYPOTHYROIDISM, UNSPECIFIED (10) Inguinal hernia Code(s): K40.90 - UNIL INGUINAL HERNIA, W/O OBST OR GANGR, NOT SPCF RECUR (11) Renal osteodystrophy Code(s): N25.0 - RENAL OSTEODYSTROPHY (12) Valvular heart disease Code(s): I38 - ENDOCARDITIS, VALVE UNSPECIFIED Assessment/Plan Agree with ABX per ID -> Rocephin daily O2 as needed Cultures are noted At this point the patient seems to be improving -> would monitor off systemic steroids VTE prophylaxis Will follow Thank you. Dr Jameson
[2017-02-08 17:25] LABS: URINE APPEARANCE CLOUDY; URINE BILIRUBIN NEGATIVE (NEGATIVE); URINE COLOR AMBER; URINE GLUCOSE (UA) NEGATIVE (NEGATIVE); URINE KETONE NEGATIVE (NEGATIVE); URINE NITRITE NEGATIVE (NEGATIVE); URINE UROBILINOGEN NEGATIVE E.U./dl (0.2-1.0)
[2017-02-08 17:31] LABS: URINE BLOOD 2+ (NEGATIVE); URINE LEUK ESTERASE TRACE (NEGATIVE); URINE PROTEIN 2+ (NEGATIVE)
[2017-02-08 17:33] LABS: URINE MUCUS RARE; URINE RBC 1 /hpf (0-3); URINE WBC 26 /hpf (3-5)
--- NOTE | 2017-02-08 18:54 | PN ---
Progress Note, Physician History of Present Illness: stable - Current Medication List Current Medications: Active Medications Acetaminophen (Tylenol -) 650 mg PO Q4H PRN PRN Reason: FEVER OR PAIN Last Admin: 02/06/17 05:51 Dose: 650 mg Albuterol/Ipratropium (Duoneb -) 1 amp NEB Q6H PRN PRN Reason: SHORTNESS OF BREATH Heparin Sodium (Porcine) (Heparin -) 5,000 unit SQ BID [facility] Last Admin: 02/08/17 09:18 Dose: 5,000 unit Ceftriaxone Sodium (Rocephin 1gm Ivpb (Pre-Docked)) 50 mls @ 100 mls/hr IVPB DAILY [facility] Last Admin: 02/08/17 09:18 Dose: 100 mls/hr Labetalol HCl (Normodyne -) 50 mg PO DAILY [facility] Last Admin: 02/08/17 09:18 Dose: 50 mg Levothyroxine Sodium (Synthroid -) 75 mcg PO DAILY@0700 [facility] Last Admin: 02/08/17 06:33 Dose: 75 mcg Sevelamer Carbonate (Renvela -) 800 mg PO BIDWM [facility] Last Admin: 02/08/17 17:10 Dose: 800 mg - Objective Vital Signs: Vital Signs Temperature 98.2 F 02/08/17 15:10 Pulse Rate 64 02/08/17 15:10 Respiratory Rate 18 02/08/17 15:10 Blood Pressure 124/54 02/08/17 15:10 O2 Sat by Pulse Oximetry (%) 98 02/08/17 09:00 Constitutional: Yes: No Distress HENT: Yes: Atraumatic Neck: Yes: Supple Cardiovascular: Yes: Regular Rate and Rhythm Respiratory: Yes: CTA Bilaterally Gastrointestinal: Yes: Normal Bowel Sounds Extremities: Yes: WNL Neurological: Yes: Alert, Oriented Labs: CBC, BMP 02/08/17 08:50 02/08/17 08:50 INR, PTT INR 1.28 (0.82-1.09) H 02/05/17 17:20 Problem List - Problems (1) Pneumonia Assessment/Plan: on abx stable Code(s): J18.9 - PNEUMONIA, UNSPECIFIED ORGANISM (2) CHF (congestive heart failure) Assessment/Plan: stable Code(s): I50.9 - HEART FAILURE, UNSPECIFIED Qualifiers: Congestive heart failure type: diastolic Congestive heart failure chronicity: acute on chronic Qualified Code(s): I50.33 - Acute on chronic diastolic (congestive) heart failure (3) HTN (hypertension) Assessment/Plan: on meds stable Code(s): I10 - ESSENTIAL (PRIMARY) HYPERTENSION Qualifiers: Hypertension type: essential hypertension Qualified Code(s): I10 - Essential (primary) hypertension (4) Hypothyroid Assessment/Plan: on meds stable Code(s): E03.9 - HYPOTHYROIDISM, UNSPECIFIED Assessment/Plan covering dr torres
[2017-02-09] MEDS: LEVOTHYROXINE NA 75 MCG TABLET (FP) PO SCH (06:09)
--- NOTE | 2017-02-09 07:56 | PN ---
Progress Note, Physician History of Present Illness: FEELS BETTER STILL WITH WEAKNESS - Current Medication List Current Medications: Active Medications Acetaminophen (Tylenol -) 650 mg PO Q4H PRN PRN Reason: FEVER OR PAIN Last Admin: 02/06/17 05:51 Dose: 650 mg Albuterol/Ipratropium (Duoneb -) 1 amp NEB Q6H PRN PRN Reason: SHORTNESS OF BREATH Heparin Sodium (Porcine) (Heparin -) 5,000 unit SQ BID [facility] Last Admin: 02/08/17 21:41 Dose: 5,000 unit Ceftriaxone Sodium (Rocephin 1gm Ivpb (Pre-Docked)) 50 mls @ 100 mls/hr IVPB DAILY [facility] Last Admin: 02/08/17 09:18 Dose: 100 mls/hr Labetalol HCl (Normodyne -) 50 mg PO DAILY [facility] Last Admin: 02/08/17 09:18 Dose: 50 mg Levothyroxine Sodium (Synthroid -) 75 mcg PO DAILY@0700 [facility] Last Admin: 02/09/17 06:09 Dose: 75 mcg Sevelamer Carbonate (Renvela -) 800 mg PO BIDWM [facility] Last Admin: 02/08/17 17:10 Dose: 800 mg - Objective Vital Signs: Vital Signs Temperature 97.7 F 02/09/17 06:00 Pulse Rate 67 02/09/17 06:00 Respiratory Rate 16 02/09/17 06:00 Blood Pressure 131/73 02/09/17 06:00 O2 Sat by Pulse Oximetry (%) 98 02/08/17 20:44 Cardiovascular: Yes: Murmur, S1, S2 Respiratory: Yes: Regular, Diminished, On Nasal O2 Gastrointestinal: Yes: Normal Bowel Sounds, Soft Labs: CBC, BMP 02/08/17 08:50 INR, PTT INR 1.28 (0.82-1.09) H 02/05/17 17:20 Problem List - Problems (1) Pneumonia Assessment/Plan: IV ABX CT OF CHEST--SUZETTE INFITRATE O2 ID AND PULM CONSULT NOTED Code(s): J18.9 - PNEUMONIA, UNSPECIFIED ORGANISM (2) Elevated troponin I level Assessment/Plan: MONITOR LABS--MAYBE DUE TO RENAL FAILURE CARDIO Code(s): R74.8 - ABNORMAL LEVELS OF OTHER SERUM ENZYMES (3) Aortic stenosis Assessment/Plan: PER CARDIO--NOTED CONSIDER TAVR Code(s): I35.0 - NONRHEUMATIC AORTIC (VALVE) STENOSIS Qualifiers: Cardiac valve disease etiology: nonrheumatic Qualified Code(s): I35.0 - Nonrheumatic aortic (valve) stenosis (4) ESRD (end stage renal disease) Assessment/Plan: RENAL CONSULT Code(s): N18.6 - END STAGE RENAL DISEASE (5) Weakness Assessment/Plan: TREAT PNEUMONIA PT Code(s): R53.1 - WEAKNESS
[2017-02-09 08:25] LABS: CALCIUM 8.2 mg/dL (8.5-10.1); COCKROFT - GAULT 6.08; CREATININE 5.7 mg/dL (0.7-1.3); PHOSPHOROUS 4.8 mg/dL (2.5-4.9)
[2017-02-09] MEDS: SEVELAMER CARBONATE 800 MG TAB (FP) PO SCH ×2 (08:53→17:42)
--- NOTE | 2017-02-09 09:23 | PN ---
Progress Note, Physician Chief Complaint: no further cough or sob History of Present Illness: 89 M with HTN and ESRD for several years. Has mild CAD on stress in 2015 with normal EF. was noted on echocardiogram in 2014. He was seen yesterday in the office for cough malaise and congestion. Productive white phlegm and noted to be febrile. Lat HD session was yesterday without incident. Currently feels well. TP was noted to be mildly elevated. He denies chest pain. Typically poorly ambulatory and uses a walker. No dizziness, chest pain. Stress 2014 Small inferolateral reversible defect Echo 02/06/17 mod lvh, normal EF, LAE, mod-sev 35/19 mm grad, mod MR, severe TR, severe PHTN CT chest 02/06/17 c/w SUZETTE pneumonia - Current Medication List Current Medications: Active Medications Acetaminophen (Tylenol -) 650 mg PO Q4H PRN PRN Reason: FEVER OR PAIN Last Admin: 02/06/17 05:51 Dose: 650 mg Albuterol/Ipratropium (Duoneb -) 1 amp NEB Q6H PRN PRN Reason: SHORTNESS OF BREATH Heparin Sodium (Porcine) (Heparin -) 5,000 unit SQ BID [facility] Last Admin: 02/08/17 21:41 Dose: 5,000 unit Ceftriaxone Sodium (Rocephin 1gm Ivpb (Pre-Docked)) 50 mls @ 100 mls/hr IVPB DAILY [facility] Last Admin: 02/08/17 09:18 Dose: 100 mls/hr Labetalol HCl (Normodyne -) 50 mg PO DAILY [facility] Last Admin: 02/08/17 09:18 Dose: 50 mg Levothyroxine Sodium (Synthroid -) 75 mcg PO DAILY@0700 [facility] Last Admin: 02/09/17 06:09 Dose: 75 mcg Sevelamer Carbonate (Renvela -) 800 mg PO BIDWM [facility] Last Admin: 02/09/17 08:53 Dose: 800 mg - Objective Vital Signs: Vital Signs Temperature 97.7 F 02/09/17 06:00 Pulse Rate 67 02/09/17 06:00 Respiratory Rate 16 02/09/17 06:00 Blood Pressure 131/73 02/09/17 06:00 O2 Sat by Pulse Oximetry (%) 98 02/08/17 20:44 Constitutional: Yes: Well Nourished, No Distress Eyes: Yes: WNL HENT: Yes: WNL Neck: Yes: WNL Cardiovascular: Yes: Regular Rate and Rhythm, Murmur (3/6 annelise rusb.), S1, S2 Respiratory: Yes: CTA Bilaterally Gastrointestinal: Yes: Normal Bowel Sounds, Soft Edema: No Peripheral Pulses WNL: Yes Labs: CBC, BMP 02/08/17 08:50 02/09/17 07:05 INR, PTT INR 1.28 (0.82-1.09) H 02/05/17 17:20 Problem List - Problems (1) Elevated troponin I level Assessment/Plan: Nick pattern is atypical for NSTEMI. Most likely due to renal disease and infection, stress from the setting of volume overload and infection. Conservative medical management as outlined above for now. Will reassess for ischemia workup when treated for pneumonia. May need cath and TAVR when pneumonia is treated, discussed with his daughter and the patient This can be done as an outpatient when no longer infected. Code(s): R74.8 - ABNORMAL LEVELS OF OTHER SERUM ENZYMES (2) Aortic stenosis Assessment/Plan: Echo shows moderate if not severe . HD for fluid removal, will consider TAVR evaluation as outpatient when stable and pneumonia is treated. Code(s): I35.0 - NONRHEUMATIC AORTIC (VALVE) STENOSIS Qualifiers: Cardiac valve disease etiology: nonrheumatic Qualified Code(s): I35.0 - Nonrheumatic aortic (valve) stenosis (3) CHF (congestive heart failure) Assessment/Plan: Much improved. HD for fluid removal. Needs UF. Code(s): I50.9 - HEART FAILURE, UNSPECIFIED Qualifiers: Congestive heart failure type: diastolic Congestive heart failure chronicity: acute on chronic Qualified Code(s): I50.33 - Acute on chronic diastolic (congestive) heart failure
[2017-02-09] MEDS: HEPARIN NA (PORCINE) 5,000 UNITS/ML 1ML VIAL SQ SCH ×2 (10:41→21:26)
[2017-02-09] MEDS: LABETALOL HCL 100 MG TABLET (FP) PO SCH (10:41)
[2017-02-09] MEDS: CEFTRIAXONE 50 ML IVPB SCH (10:42)
--- NOTE | 2017-02-09 10:48 | PN ---
Progress Note (short form) - Note Progress Note: feels well no complaints cough improved chest ct with left lung patchy infiltrate c/w pneumonia Vital Signs Period Temp Pulse Resp BP Sys/Lucero Pulse Ox Last 24 Hr 97.6 F-98.2 F 64-70 16-18 124-145/54-73 98 cor-rrr lungs clear abd soft,nt ext no edema CBC, BMP 02/08/17 08:50 02/09/17 07:05 Microbiology 02/05/17 17:20 Blood - Peripheral Venous Blood Culture - Preliminary NO GROWTH OBTAINED AFTER 72 HOURS, INCUBATION TO CONTINUE FOR 2 DAYS. 02/05/17 17:20 Blood - Peripheral Venous Blood Culture - Preliminary NO GROWTH OBTAINED AFTER 72 HOURS, INCUBATION TO CONTINUE FOR 2 DAYS. 02/06/17 13:40 Sputum - Expectorated Gram Stain - Final 02/06/17 13:40 Sputum - Expectorated Sputum Culture - Preliminary NORMAL RESPIRATORY MARTIN 02/06/17 13:40 Urine - Urine Clean Catch Legionella Antigen - Final 02/06/17 13:40 Urine - Urine Clean Catch Streptococcus pneumoniae Antigen ( M - Final 02/05/17 17:48 Nasopharyngeal Swab Respiratory Virus Panel - Preliminary 02/05/17 17:48 Nasopharyngeal Swab Influenza Types A,B Antigen (OLEG) - Final 02/05/17 17:48 Nasopharyngeal Swab - Final Current Medications Acetaminophen (Tylenol -) 650 mg PO Q4H PRN PRN Reason: FEVER OR PAIN Last Admin: 02/06/17 05:51 Dose: 650 mg Albuterol/Ipratropium (Duoneb -) 1 amp NEB Q6H PRN PRN Reason: SHORTNESS OF BREATH Heparin Sodium (Porcine) (Heparin -) 5,000 unit SQ BID [facility] Last Admin: 02/09/17 10:41 Dose: 5,000 unit Ceftriaxone Sodium (Rocephin 1gm Ivpb (Pre-Docked)) 50 mls @ 100 mls/hr IVPB DAILY [facility] Last Admin: 02/09/17 10:42 Dose: 100 mls/hr Labetalol HCl (Normodyne -) 50 mg PO DAILY [facility] Last Admin: 02/09/17 10:41 Dose: 50 mg Levothyroxine Sodium (Synthroid -) 75 mcg PO DAILY@0700 [facility] Last Admin: 02/09/17 06:09 Dose: 75 mcg Sevelamer Carbonate (Renvela -) 800 mg PO BIDWM [facility] Last Admin: 02/09/17 08:53 Dose: 800 mg a/p CAP- on ceftriaxone day #5 of 7- can switch to po ceftin to complete 7 days- 500 mg daily due to nikki/ckd NIKKI/CKD Aortic stenosis f/u renal and cardiology please call back if needed Problem List - Problems (1) Fever in adult Code(s): R50.9 - FEVER, UNSPECIFIED (2) ESRD (end stage renal disease) on dialysis Code(s): N18.6 - END STAGE RENAL DISEASE Z99.2 - DEPENDENCE ON RENAL DIALYSIS (3) Aortic stenosis Code(s): I35.0 - NONRHEUMATIC AORTIC (VALVE) STENOSIS Qualifiers: Cardiac valve disease etiology: nonrheumatic Qualified Code(s): I35.0 - Nonrheumatic aortic (valve) stenosis
--- NOTE | 2017-02-09 11:43 | PN ---
Progress Note (short form) - Note Progress Note: Renal Follow up for ESRD on HD Pt seen and examined at the bedside no acute complaints cough is improving no fever or chills denies any sob Vital Signs Temperature 98.1 F 02/09/17 09:51 Pulse Rate 70 02/09/17 09:51 Respiratory Rate 18 02/09/17 09:51 Blood Pressure 145/62 02/09/17 09:51 O2 Sat by Pulse Oximetry (%) 98 02/08/17 20:44 Intake & Output 02/06/17 02/07/17 02/08/17 02/09/17 23:59 23:59 23:59 23:59 Intake Total 600 290 800 250 Output Total 125 50 420 50 Balance 475 240 380 200 Weight 111 lb 113 lb 5 oz 108 lb Gen: NAD CVS: RRR + systolic Murmur Lungs: CTA, no rales or wheeze Abd: soft NT/ND Ext: No edema, clubbing or cyanosis CBC, BMP 02/08/17 08:50 02/09/17 07:05 Current Medications Acetaminophen (Tylenol -) 650 mg PO Q4H PRN PRN Reason: FEVER OR PAIN Last Admin: 02/06/17 05:51 Dose: 650 mg Albuterol/Ipratropium (Duoneb -) 1 amp NEB Q6H PRN PRN Reason: SHORTNESS OF BREATH Heparin Sodium (Porcine) (Heparin -) 5,000 unit SQ BID [facility] Last Admin: 02/09/17 10:41 Dose: 5,000 unit Ceftriaxone Sodium (Rocephin 1gm Ivpb (Pre-Docked)) 50 mls @ 100 mls/hr IVPB DAILY [facility] Last Admin: 02/09/17 10:42 Dose: 100 mls/hr Labetalol HCl (Normodyne -) 50 mg PO DAILY [facility] Last Admin: 02/09/17 10:41 Dose: 50 mg Levothyroxine Sodium (Synthroid -) 75 mcg PO DAILY@0700 [facility] Last Admin: 02/09/17 06:09 Dose: 75 mcg Sevelamer Carbonate (Renvela -) 800 mg PO BIDWM [facility] Last Admin: 02/09/17 08:53 Dose: 800 mg A/P 89 year old Gentleman with PMhx of ESRD on HD x 5 years, Hypertension, Chronic Cholecystitis s/p cholecystectomy, BPH who presented with 1 week history of productive cough and found to have Fever with suspected PNA. #Cough/Fever r/o PNA on Ceftriaxone can be on Ceftin as per ID #ESRD on HD no acute indication for dialysis today next treatment tomorrow as inpatient or outpatient Uf as tolerated #Renal Osteodystrphy continue Sevelamer Trend phos levels - be be done with dialysis today #Hypertension BP is at goal continue Labetalol hold before dialysis #Aortic Stenosis/CHF volume status is ok Cardiology follow up Ray Foster DO
--- NOTE | 2017-02-09 14:02 | PN ---
Progress Note (short form) - Note Progress Note: Feels ok today. No CP or SOB. No acute events overnight. Intake & Output 02/06/17 02/07/17 02/08/17 02/09/17 23:59 23:59 23:59 23:59 Intake Total 600 290 800 250 Output Total 125 50 420 50 Balance 475 240 380 200 Weight 111 lb 113 lb 5 oz 108 lb Last Vital Signs Temp Pulse Resp BP Pulse Ox 98.1 F 70 18 145/62 98 02/09/17 09:51 02/09/17 09:51 02/09/17 09:51 02/09/17 09:51 02/09/17 09:00 Active Medications Acetaminophen (Tylenol -) 650 mg PO Q4H PRN PRN Reason: FEVER OR PAIN Last Admin: 02/06/17 05:51 Dose: 650 mg Albuterol/Ipratropium (Duoneb -) 1 amp NEB Q6H PRN PRN Reason: SHORTNESS OF BREATH Heparin Sodium (Porcine) (Heparin -) 5,000 unit SQ BID [facility] Last Admin: 02/09/17 10:41 Dose: 5,000 unit Ceftriaxone Sodium (Rocephin 1gm Ivpb (Pre-Docked)) 50 mls @ 100 mls/hr IVPB DAILY [facility] Last Admin: 02/09/17 10:42 Dose: 100 mls/hr Labetalol HCl (Normodyne -) 50 mg PO DAILY [facility] Last Admin: 02/09/17 10:41 Dose: 50 mg Levothyroxine Sodium (Synthroid -) 75 mcg PO DAILY@0700 [facility] Last Admin: 02/09/17 06:09 Dose: 75 mcg Sevelamer Carbonate (Renvela -) 800 mg PO BIDWM [facility] Last Admin: 02/09/17 08:53 Dose: 800 mg Constitutional: Yes: No Distress, Thin Eyes: Yes: Conjunctiva Clear, EOM Intact. No: Sclera Icterus HENT: Yes: Atraumatic, Normocephalic Neck: Yes: Supple, Trachea Midline Cardiovascular: Yes: Regular Rate and Rhythm Respiratory: Yes: Cough, Diminished, Rhonchi. No: Accessory Muscle Use, Rales, Stridor, Tachypnea, Wheezes ...Inspection: Yes: WNL ...Clubbing: No Gastrointestinal: Yes: Normal Bowel Sounds, Soft Musculoskeletal: Yes: WNL Extremities: Yes: WNL Edema: No Peripheral Pulses WNL: Yes Integumentary: Yes: WNL Neurological: Yes: Alert, Oriented ...Motor Strength: WNL Psychiatric: Yes: WNL, Alert, Oriented Labs: Laboratory Results - last 24 hr 02/08/17 02/09/17 17:00 07:05 Sodium 143 Potassium 3.6 Chloride 101 Carbon Dioxide 30 Anion Gap 12 BUN 53 H D Creatinine 5.7 H D Random Glucose 87 D Calcium 8.2 L Phosphorus 4.8 Magnesium 2.0 Urine Color Veronica Urine Appearance Cloudy Urine pH 6.0 Ur Specific [place] 1.013 Urine Protein 2+ H Urine Glucose (UA) Negative Urine Ketones Negative Urine Blood 2+ H Urine Nitrite Negative Urine Bilirubin Negative Urine Urobilinogen Negative Ur Leukocyte Esterase Trace H Urine RBC 1 Urine WBC 26 Urine Mucus Rare Problem List - Problems (1) Elevated troponin I level Code(s): R74.8 - ABNORMAL LEVELS OF OTHER SERUM ENZYMES (2) Fever in adult Code(s): R50.9 - FEVER, UNSPECIFIED (3) Pneumonia Code(s): J18.9 - PNEUMONIA, UNSPECIFIED ORGANISM (4) Anemia Code(s): D64.9 - ANEMIA, UNSPECIFIED Qualifiers: Anemia type: other cause Other causes of anemia: chronic disease, kidney Qualified Code(s): N18.9 - Chronic kidney disease, unspecified; D63.1 - Anemia in chronic kidney disease (5) Aortic stenosis Code(s): I35.0 - NONRHEUMATIC AORTIC (VALVE) STENOSIS Qualifiers: Cardiac valve disease etiology: nonrheumatic Qualified Code(s): I35.0 - Nonrheumatic aortic (valve) stenosis (6) BPH (benign prostatic hypertrophy) with urinary retention Code(s): N40.1 - BENIGN PROSTATIC HYPERPLASIA WITH LOWER URINARY TRACT SYMP R33.8 - OTHER RETENTION OF URINE (7) ESRD (end stage renal disease) on dialysis Code(s): N18.6 - END STAGE RENAL DISEASE Z99.2 - DEPENDENCE ON RENAL DIALYSIS (8) HTN (hypertension) Code(s): I10 - ESSENTIAL (PRIMARY) HYPERTENSION Qualifiers: Hypertension type: essential hypertension Qualified Code(s): I10 - Essential (primary) hypertension (9) Hypothyroid Code(s): E03.9 - HYPOTHYROIDISM, UNSPECIFIED (10) Inguinal hernia Code(s): K40.90 - UNIL INGUINAL HERNIA, W/O OBST OR GANGR, NOT SPCF RECUR (11) Renal osteodystrophy Code(s): N25.0 - RENAL OSTEODYSTROPHY (12) Valvular heart disease Code(s): I38 - ENDOCARDITIS, VALVE UNSPECIFIED Assessment/Plan Agree with ID switch to Ceftin D/C planning Dr Jameson Problem List - Problems (1) Elevated troponin I level Code(s): R74.8 - ABNORMAL LEVELS OF OTHER SERUM ENZYMES (2) Fever in adult Code(s): R50.9 - FEVER, UNSPECIFIED (3) Pneumonia Code(s): J18.9 - PNEUMONIA, UNSPECIFIED ORGANISM (4) Anemia Code(s): D64.9 - ANEMIA, UNSPECIFIED Qualifiers: Anemia type: other cause Other causes of anemia: chronic disease, kidney Qualified Code(s): N18.9 - Chronic kidney disease, unspecified; D63.1 - Anemia in chronic kidney disease (5) Aortic stenosis Code(s): I35.0 - NONRHEUMATIC AORTIC (VALVE) STENOSIS Qualifiers: Cardiac valve disease etiology: nonrheumatic Qualified Code(s): I35.0 - Nonrheumatic aortic (valve) stenosis (6) BPH (benign prostatic hypertrophy) with urinary retention Code(s): N40.1 - BENIGN PROSTATIC HYPERPLASIA WITH LOWER URINARY TRACT SYMP R33.8 - OTHER RETENTION OF URINE (7) ESRD (end stage renal disease) on dialysis Code(s): N18.6 - END STAGE RENAL DISEASE Z99.2 - DEPENDENCE ON RENAL DIALYSIS (8) HTN (hypertension) Code(s): I10 - ESSENTIAL (PRIMARY) HYPERTENSION Qualifiers: Hypertension type: essential hypertension Qualified Code(s): I10 - Essential (primary) hypertension (9) Hypothyroid Code(s): E03.9 - HYPOTHYROIDISM, UNSPECIFIED (10) Inguinal hernia Code(s): K40.90 - UNIL INGUINAL HERNIA, W/O OBST OR GANGR, NOT SPCF RECUR (11) Renal osteodystrophy Code(s): N25.0 - RENAL OSTEODYSTROPHY (12) Valvular heart disease Code(s): I38 - ENDOCARDITIS, VALVE UNSPECIFIED
[2017-02-09 14:13] LABS: HEP B SURFACE AB Reactive (.)
--- NOTE | 2017-02-09 14:55 | PN ---
Physical Exam: SUBJECTIVE: Patient seen and examined. He is feeling good today. He denies cough , SOB, chest pain, fever, chills. OBJECTIVE: Vital Signs Period Temp Pulse Resp BP Sys/Lucero Pulse Ox Last 24 Hr 97.6 F-98.2 F 64-70 16-18 124-145/54-73 98-98 GENERAL: The patient is awake, alert, and fully oriented, in no acute distress. HEAD: Normal with no signs of trauma. EYES: PERRL, extraocular movements intact, sclera anicteric, conjunctiva clear. No ptosis. ENT: Ears normal, nares patent, oropharynx clear without exudates, moist mucous membranes. NECK: Trachea midline, full range of motion, supple. LUNGS: Breath sounds equal, diminished bilaterally, no wheezes, no accessory muscle use. HEART: Regular rate and rhythm, S1, S2 4/6 systolic murmur over right and left sternal border radiating to apex and axilla, no rub or gallop. ABDOMEN: Soft, nontender, nondistended, normoactive bowel sounds, no guarding, no rebound, no hepatosplenomegaly, no masses. EXTREMITIES: 2+ pulses, warm, well-perfused, no edema. NEUROLOGICAL: No facial asymmetry. Normal speech, gait not observed. PSYCH: Normal mood, normal affect. SKIN: Warm, dry, normal turgor, no rashes or lesions noted Laboratory Results - last 24 hr 02/07/17 02/08/17 02/09/17 12:20 17:00 07:05 Sodium 143 Potassium 3.6 Chloride 101 Carbon Dioxide 30 Anion Gap 12 BUN 53 H D Creatinine 5.7 H D Random Glucose 87 D Calcium 8.2 L Phosphorus 4.8 Magnesium 2.0 Urine Color Veronica Urine Appearance Cloudy Urine pH 6.0 Ur Specific [place] 1.013 Urine Protein 2+ H Urine Glucose (UA) Negative Urine Ketones Negative Urine Blood 2+ H Urine Nitrite Negative Urine Bilirubin Negative Urine Urobilinogen Negative Ur Leukocyte Esterase Trace H Urine RBC 1 Urine WBC 26 Urine Mucus Rare Hepatitis A Ab Total Negative Hep Bs Antigen Negative Hep Bs Antibody Reactive Hep B Core Total Ab Negative Hepatitis C Antibody <0.1 Active Medications Generic Name Dose Route Start Last Admin Trade Name Freq PRN Reason Stop Dose Admin Acetaminophen 650 mg 02/05/17 21:01 02/06/17 05:51 Tylenol - PO 650 mg Q4H PRN Administration FEVER OR PAIN Albuterol/Ipratropium 1 amp 02/07/17 18:11 Duoneb - NEB Q6H PRN SHORTNESS OF BREATH Heparin Sodium (Porcine) 5,000 unit 02/05/17 22:00 02/09/17 10:41 Heparin - SQ 5,000 unit BID RENATO Administration Ceftriaxone Sodium 50 mls @ 100 mls/hr 02/06/17 10:00 02/09/17 10:42 Rocephin 1gm Ivpb (Pre-Docked) IVPB 100 mls/hr DAILY RENATO Administration Labetalol HCl 50 mg 02/06/17 10:00 02/09/17 10:41 Normodyne - PO 50 mg DAILY RENATO Administration Levothyroxine Sodium 75 mcg 02/06/17 07:00 02/09/17 06:09 Synthroid - PO 75 mcg DAILY@0700 RENATO Administration Sevelamer Carbonate 800 mg 02/06/17 08:00 02/09/17 08:53 Renvela - PO 800 mg BIDWM RENATO Administration CT chest: Evaluation of the lung ernandez demonstrates faint patchy consolidation within the left upper lobe. This is suspicious for an acute pneumonia. Clinical correlation and follow-up is recommended. ASSESSMENT/PLAN: This is an 89-year-old male with a history of HTN, HLD, moderate , ESRD on HD Thu/Thu/Thu, anemia, OA, and hypothyroidism who presents to the hospital complaining of cough for 1.5 weeks and congested nose for a day. pneumonia: -cxr reviewed, CT done which confirms PNA continue Ceftriaxone 1 g, today day 5 , can switch to ceftin for 2 more days -Influenza negative -legionella urine neg, RSV neg, Influenza neg., sputum: nl vi HTN: -continue Labetalol 50 mg qd ESRD: -continue dialysis -nephrology consulted Hypothyroidism: -continue Synthroid 75 mcg qd Anemia: -stable Hgb -monitor Dispo: We will continue to follow the patient. Thank you for this consultative opportunity. Problem List - Problems (1) Fever in adult Code(s): R50.9 - FEVER, UNSPECIFIED (2) Anemia Code(s): D64.9 - ANEMIA, UNSPECIFIED Qualifiers: Anemia type: other cause Other causes of anemia: chronic disease, kidney Qualified Code(s): N18.9 - Chronic kidney disease, unspecified; D63.1 - Anemia in chronic kidney disease (3) Aortic stenosis Code(s): I35.0 - NONRHEUMATIC AORTIC (VALVE) STENOSIS Qualifiers: Cardiac valve disease etiology: nonrheumatic Qualified Code(s): I35.0 - Nonrheumatic aortic (valve) stenosis (4) ESRD (end stage renal disease) on dialysis Code(s): N18.6 - END STAGE RENAL DISEASE Z99.2 - DEPENDENCE ON RENAL DIALYSIS (5) HTN (hypertension) Code(s): I10 - ESSENTIAL (PRIMARY) HYPERTENSION Qualifiers: Hypertension type: essential hypertension Qualified Code(s): I10 - Essential (primary) hypertension (6) Hypothyroid Code(s): E03.9 - HYPOTHYROIDISM, UNSPECIFIED Visit type - Emergency Visit Emergency Visit: Yes ED Registration Date: 02/05/17 Care time: The patient presented to the Emergency Department on the above date and was hospitalized for further evaluation of their emergent condition. - New Patient This patient is new to me today: No - Critical Care Critical Care patient: No - Discharge Referral Referred to [facility] Med P.C.: No
[2017-02-10] MEDS: LEVOTHYROXINE NA 75 MCG TABLET (FP) PO SCH (06:26)
--- NOTE | 2017-02-10 07:40 | DS ---
Physical Examination Vital Signs: Vital Signs Temperature 97.7 F 02/10/17 05:58 Pulse Rate 74 02/10/17 05:58 Respiratory Rate 18 02/10/17 05:58 Blood Pressure 151/65 02/10/17 05:58 O2 Sat by Pulse Oximetry (%) 98 02/09/17 21:00 Cardiovascular: Yes: Regular Rate and Rhythm Respiratory: Yes: Regular, CTA Bilaterally Gastrointestinal: Yes: Normal Bowel Sounds, Soft Labs: CBC, BMP 02/08/17 08:50 02/09/17 07:05 Discharge Summary Reason For Visit: FEVER Current Active Problems Elevated troponin I level (Acute) Fever in adult (Acute) Pneumonia (Acute) Hospital Course: 89 year old male with a past medical hx of end stage renal disease (dialysis //thu), HTN, hypercholesterolemia, and hypothyroidism who presents to the ED complaining of nasal congestion and a cough for a few days. The patient reports a yellow/white sputum. He reports he received a full course of dialysis today and then he was seen in the office the patient also had a fever and I sent him to the ED for further evaluation. The patient notes generalized weakness. - Past Medical History Cardiovascular: Yes: Aortic Stenosis, HTN, Hyperlipdemia, Murmur, Other (aotic stenosis--moderate) Gastrointestinal: Yes: Peptic Ulcer Disease (40 years ago) Hepatobiliary: Yes: Cholecystitis (s/p drain placement) Renal/: Yes: Renal Failure, BPH, Hemodialysis Heme/Onc: Yes: Anemia Musculoskeletal: Yes: Osteoarthritis Endocrine: Yes: Hypothyroidism - Past Surgical History Past Surgical History: Yes: AV Fistula/Graft, Cholecystectomy - Problems (1) Pneumonia Assessment/Plan: IV ABX TO PO CEFTIN CT OF CHEST--SUZETTE INFITRATE O2 ID AND PULM CONSULT NOTED Code(s): J18.9 - PNEUMONIA, UNSPECIFIED ORGANISM (2) Elevated troponin I level Assessment/Plan: MONITOR LABS--MAYBE DUE TO RENAL FAILURE CARDIO NOTED Code(s): R74.8 - ABNORMAL LEVELS OF OTHER SERUM ENZYMES (3) Aortic stenosis Assessment/Plan: PER CARDIO--NOTED CONSIDER TAVR-- EVAL OUTPATIENT Code(s): I35.0 - NONRHEUMATIC AORTIC (VALVE) STENOSIS Qualifiers: Cardiac valve disease etiology: nonrheumatic Qualified Code(s): I35.0 - Nonrheumatic aortic (valve) stenosis (4) ESRD (end stage renal disease) Assessment/Plan: RENAL CONSULT Code(s): N18.6 - END STAGE RENAL DISEASE (5) Weakness Assessment/Plan: TREAT PNEUMONIA PT Code(s): R53.1 - WEAKNESS Condition: Improved - Instructions Referrals: Karena White MD [Primary Care Provider] - 1 Week Disposition: HOME - Home Medications Comprehensive Discharge Medication List: Ambulatory Orders Levothyroxine [Synthroid -] 75 mcg PO DAILY@0700 tablet 09/18/15 Sevelamer Carbonate [Renvela -] 800 mg PO BIDWM tab 09/18/15 Labetalol HCl [Normodyne -] 50 mg PO DAILY 09/08/16 Cefuroxime Axetil [Ceftin -] 250 mg PO BID #4 tablet 02/10/17
[2017-02-10] MEDS: SEVELAMER CARBONATE 800 MG TAB (FP) PO SCH (08:56)
[2017-02-10 10:46] LABS: CALCIUM 8.1 mg/dL (8.5-10.1); COCKROFT - GAULT 4.95
--- NOTE | 2017-02-10 11:37 | PN ---
Progress Note (short form) - Note Progress Note: Renal Follow up for ESRD on HD Pt seen and examined during dialysis BP stable, goal UF is 2-2.5L as tolerated Vital Signs Temperature 98.1 F 02/09/17 09:51 Pulse Rate 70 02/09/17 09:51 Respiratory Rate 18 02/09/17 09:51 Blood Pressure 145/62 02/09/17 09:51 O2 Sat by Pulse Oximetry (%) 98 02/08/17 20:44 Intake & Output 02/06/17 02/07/17 02/08/17 02/09/17 23:59 23:59 23:59 23:59 Intake Total 600 290 800 250 Output Total 125 50 420 50 Balance 475 240 380 200 Weight 111 lb 113 lb 5 oz 108 lb Gen: NAD CVS: RRR + systolic Murmur Lungs: CTA, no rales or wheeze Abd: soft NT/ND Ext: No edema, clubbing or cyanosis CBC, BMP 02/08/17 08:50 02/09/17 07:05 Current Medications Acetaminophen (Tylenol -) 650 mg PO Q4H PRN PRN Reason: FEVER OR PAIN Last Admin: 02/06/17 05:51 Dose: 650 mg Albuterol/Ipratropium (Duoneb -) 1 amp NEB Q6H PRN PRN Reason: SHORTNESS OF BREATH Heparin Sodium (Porcine) (Heparin -) 5,000 unit SQ BID [facility] Last Admin: 02/09/17 10:41 Dose: 5,000 unit Ceftriaxone Sodium (Rocephin 1gm Ivpb (Pre-Docked)) 50 mls @ 100 mls/hr IVPB DAILY [facility] Last Admin: 02/09/17 10:42 Dose: 100 mls/hr Labetalol HCl (Normodyne -) 50 mg PO DAILY [facility] Last Admin: 02/09/17 10:41 Dose: 50 mg Levothyroxine Sodium (Synthroid -) 75 mcg PO DAILY@0700 [facility] Last Admin: 02/09/17 06:09 Dose: 75 mcg Sevelamer Carbonate (Renvela -) 800 mg PO BIDWM [facility] Last Admin: 02/09/17 08:53 Dose: 800 mg A/P 89 year old Gentleman with PMhx of ESRD on HD x 5 years, Hypertension, Chronic Cholecystitis s/p cholecystectomy, BPH who presented with 1 week history of productive cough and found to have Fever with suspected PNA. #Cough/Fever r/o PNA on Ceftriaxone oral abx as per ID #ESRD on HD Tolerating dialysis well to resume dialysis as outpatient upon discharge 3K bath with HD #Renal Osteodystrphy continue Sevelamer #Hypertension BP is at goal continue Labetalol hold before dialysis #Aortic Stenosis/CHF volume status is ok Cardiology follow up Ray Foster DO
[2017-02-10 13:01] VITALS: PULSE 72
--- NOTE | 2017-02-10 13:07 | PN ---
Progress Note (short form) - Note Progress Note: On HD in HD unit. Feels ok today. No CP or SOB. No acute events overnight. Intake & Output 02/07/17 02/08/17 02/09/17 02/10/17 23:59 23:59 23:59 23:59 Intake Total 290 800 500 120 Output Total 50 420 50 25 Balance 240 380 450 95 Weight 113 lb 5 oz 108 lb Last Vital Signs Temp Pulse Resp BP Pulse Ox 97.8 F 72 18 139/65 98 02/10/17 09:45 02/10/17 12:55 02/10/17 12:55 02/10/17 12:55 02/09/17 21:00 Active Medications Acetaminophen (Tylenol -) 650 mg PO Q4H PRN PRN Reason: FEVER OR PAIN Last Admin: 02/06/17 05:51 Dose: 650 mg Albuterol/Ipratropium (Duoneb -) 1 amp NEB Q6H PRN PRN Reason: SHORTNESS OF BREATH Heparin Sodium (Porcine) (Heparin -) 5,000 unit SQ BID [facility] Last Admin: 02/09/17 21:26 Dose: 5,000 unit Ceftriaxone Sodium (Rocephin 1gm Ivpb (Pre-Docked)) 50 mls @ 100 mls/hr IVPB DAILY [facility] Last Admin: 02/09/17 10:42 Dose: 100 mls/hr Labetalol HCl (Normodyne -) 50 mg PO DAILY [facility] Last Admin: 02/09/17 10:41 Dose: 50 mg Levothyroxine Sodium (Synthroid -) 75 mcg PO DAILY@0700 [facility] Last Admin: 02/10/17 06:26 Dose: 75 mcg Sevelamer Carbonate (Renvela -) 800 mg PO BIDWM [facility] Last Admin: 02/10/17 08:56 Dose: 800 mg Constitutional: Yes: No Distress, Thin Eyes: Yes: Conjunctiva Clear, EOM Intact. No: Sclera Icterus HENT: Yes: Atraumatic, Normocephalic Neck: Yes: Supple, Trachea Midline Cardiovascular: Yes: Regular Rate and Rhythm Respiratory: Yes: Cough, Diminished, Rhonchi. No: Accessory Muscle Use, Rales, Stridor, Tachypnea, Wheezes ...Inspection: Yes: WNL ...Clubbing: No Gastrointestinal: Yes: Normal Bowel Sounds, Soft Musculoskeletal: Yes: WNL Extremities: Yes: WNL Edema: No Peripheral Pulses WNL: Yes Integumentary: Yes: WNL Neurological: Yes: Alert, Oriented ...Motor Strength: WNL Psychiatric: Yes: WNL, Alert, Oriented Labs: Laboratory Results - last 24 hr 02/07/17 02/10/17 12:20 09:50 Sodium 141 Potassium 3.5 Chloride 100 Carbon Dioxide 25 Anion Gap 16 BUN 64 H D Creatinine 7.0 H D Random Glucose 119 H D Calcium 8.1 L Hepatitis A Ab Total Negative Hep Bs Antigen Negative Hep Bs Antibody Reactive Hep B Core Total Ab Negative Hepatitis C Antibody <0.1 Problem List - Problems (1) Elevated troponin I level Code(s): R74.8 - ABNORMAL LEVELS OF OTHER SERUM ENZYMES (2) Fever in adult Code(s): R50.9 - FEVER, UNSPECIFIED (3) Pneumonia Code(s): J18.9 - PNEUMONIA, UNSPECIFIED ORGANISM (4) Anemia Code(s): D64.9 - ANEMIA, UNSPECIFIED Qualifiers: Anemia type: other cause Other causes of anemia: chronic disease, kidney Qualified Code(s): N18.9 - Chronic kidney disease, unspecified; D63.1 - Anemia in chronic kidney disease (5) Aortic stenosis Code(s): I35.0 - NONRHEUMATIC AORTIC (VALVE) STENOSIS Qualifiers: Cardiac valve disease etiology: nonrheumatic Qualified Code(s): I35.0 - Nonrheumatic aortic (valve) stenosis (6) BPH (benign prostatic hypertrophy) with urinary retention Code(s): N40.1 - BENIGN PROSTATIC HYPERPLASIA WITH LOWER URINARY TRACT SYMP R33.8 - OTHER RETENTION OF URINE (7) ESRD (end stage renal disease) on dialysis Code(s): N18.6 - END STAGE RENAL DISEASE Z99.2 - DEPENDENCE ON RENAL DIALYSIS (8) HTN (hypertension) Code(s): I10 - ESSENTIAL (PRIMARY) HYPERTENSION Qualifiers: Hypertension type: essential hypertension Qualified Code(s): I10 - Essential (primary) hypertension (9) Hypothyroid Code(s): E03.9 - HYPOTHYROIDISM, UNSPECIFIED (10) Inguinal hernia Code(s): K40.90 - UNIL INGUINAL HERNIA, W/O OBST OR GANGR, NOT SPCF RECUR (11) Renal osteodystrophy Code(s): N25.0 - RENAL OSTEODYSTROPHY (12) Valvular heart disease Code(s): I38 - ENDOCARDITIS, VALVE UNSPECIFIED Assessment/Plan Ceftin PO D/C planning Dr Jameson Problem List - Problems (1) Elevated troponin I level Code(s): R74.8 - ABNORMAL LEVELS OF OTHER SERUM ENZYMES (2) Fever in adult Code(s): R50.9 - FEVER, UNSPECIFIED (3) Pneumonia Code(s): J18.9 - PNEUMONIA, UNSPECIFIED ORGANISM (4) Anemia Code(s): D64.9 - ANEMIA, UNSPECIFIED Qualifiers: Anemia type: other cause Other causes of anemia: chronic disease, kidney Qualified Code(s): N18.9 - Chronic kidney disease, unspecified; D63.1 - Anemia in chronic kidney disease (5) Aortic stenosis Code(s): I35.0 - NONRHEUMATIC AORTIC (VALVE) STENOSIS Qualifiers: Cardiac valve disease etiology: nonrheumatic Qualified Code(s): I35.0 - Nonrheumatic aortic (valve) stenosis (6) BPH (benign prostatic hypertrophy) with urinary retention Code(s): N40.1 - BENIGN PROSTATIC HYPERPLASIA WITH LOWER URINARY TRACT SYMP R33.8 - OTHER RETENTION OF URINE (7) ESRD (end stage renal disease) on dialysis Code(s): N18.6 - END STAGE RENAL DISEASE Z99.2 - DEPENDENCE ON RENAL DIALYSIS (8) HTN (hypertension) Code(s): I10 - ESSENTIAL (PRIMARY) HYPERTENSION Qualifiers: Hypertension type: essential hypertension Qualified Code(s): I10 - Essential (primary) hypertension (9) Hypothyroid Code(s): E03.9 - HYPOTHYROIDISM, UNSPECIFIED (10) Inguinal hernia Code(s): K40.90 - UNIL INGUINAL HERNIA, W/O OBST OR GANGR, NOT SPCF RECUR (11) Renal osteodystrophy Code(s): N25.0 - RENAL OSTEODYSTROPHY (12) Valvular heart disease Code(s): I38 - ENDOCARDITIS, VALVE UNSPECIFIED
[2017-02-10] MEDS: CEFTRIAXONE 50 ML IVPB SCH (13:31)
[2017-02-10] MEDS: LABETALOL HCL 100 MG TABLET (FP) PO SCH (13:31)
[2017-02-10] MEDS: HEPARIN NA (PORCINE) 5,000 UNITS/ML 1ML VIAL SQ SCH (13:38)
[2017-02-10 14:02] VITALS: BP 154/88; TEMP 97.7
== END 2017-02-10 14:38 | disposition home or self-care (01) | DRG 193 ==
LOC: JER 16:23 → JERBED 18:48 → J6S 20:13
PROVIDERS: ADMIT Family Medicine; ATTEND Family Medicine
PROC: 5A1D60Z (ICD-10-PCS; principal; 2017-02-07)
DX: J18.9 Pneumonia, unspecified organism (principal); N18.6 End stage renal disease; I50.33 Acute on chronic diastolic (congestive) heart failure; N17.9 Acute kidney failure, unspecified; I13.2 Hypertensive heart and chronic kidney disease with heart failure and with stage 5 chronic kidney disease, or end stage renal disease; K40.90 Unilateral inguinal hernia, without obstruction or gangrene, not specified as recurrent; E78.00 Pure hypercholesterolemia, unspecified; E03.9 Hypothyroidism, unspecified; I35.0 Nonrheumatic aortic (valve) stenosis; N40.0 Benign prostatic hyperplasia without lower urinary tract symptoms; D64.9 Anemia, unspecified; M19.90 Unspecified osteoarthritis, unspecified site; R74.8 Abnormal levels of other serum enzymes; D69.6 Thrombocytopenia, unspecified; K81.1 Chronic cholecystitis; Z99.2 Dependence on renal dialysis; Z87.891 Personal history of nicotine dependence
CPT/HCPCS: 36415; 71010-TC; 71250-TC; 80048; 80053; 81003; 81015; 82550; 82553; 83605; 83735; 84100; 84484; 85025; 85027; 85610; 85730; 86704; 86706; 86708; 86850; 86900; 86901; 87040; 87070; 87205; 87254; 87340; 87804; 87899; 93005; 93010; 93306-TC; 94640; 97116-GP; 97161-GP; 99283-25; J1644